=== PATIENT | female | born 1955 | race Caucasian/White ===

== ENCOUNTER 2016-09-28 15:14 | Emergency (ER) | payer OTHER ==
[2016-09-28 15:25] VITALS: BMI 37.5
[2016-09-28 15:30] VITALS: RESP 17; TEMP 98.7
[2016-09-28] MEDS ORDERED: Sodium Chloride 0.9% 500 ML IV STA (15:41)
[2016-09-28 16:23] LABS: ADD MANUAL DIFF? NO
[2016-09-28 16:27] LABS: EOS % 0.7 % (1.5-5.0); GRAN # 3.62 (1.4-6.5); GRAN % 67.4 % (50.0-68.0); HEMATOCRIT 33.3 % (36.0-48.0); LYMPH # 1.5 (1.2-3.4); LYMPH % 27.1 % (22.0-35.0); MEAN CELL VOLUME 88.8 fL (80.0-105.0); MEAN CORPUSCULAR HEMOGLOBIN 29.6 pg (25.0-35.0); MEAN CORPUSCULAR HGB CONC 33.3 g/dl (31.0-37.0); MEAN PLATELET VOLUME 9.8 fl (7.0-11.0); MONO # 0.3 (0.1-0.6); MONO % 4.8 % (1.0-6.0); PLATELET COUNT 251 10^3/uL (120.0-450.0); RED CELL DISTRIBUTION WIDTH 13.6 % (11.5-14.5); WHITE BLOOD COUNT 5.4 10^3/ul (4.5-11.0)
[2016-09-28 16:36] LABS: BLOOD UREA NITROGEN 17 mg/dL (7-21); CALCIUM 9.5 mg/dL (8.4-10.5); CARBON DIOXIDE 24 mmol/L (21-33); CHLORIDE 105 mmol/L (98-107); GFR AFRICAN-AMERICAN > 60; GLUCOSE,RANDOM 83 mg/dL (70-110); POTASSIUM 4.5 mmol/L (3.6-5.0); SODIUM 139 mmol/L (132-148)
--- NOTE | 2016-09-28 16:40 | ED PDOC ---
Arrival/HPI - General Chief Complaint: Abnormal Skin Integrity Time Seen by Provider: 09/28/16 15:22 Historian: Patient, Family - History of Present Illness Narrative History of Present Illness (Text): 09/28/16 16:48 61 yo female with a h/o DM, Anemia, COPD, HTN, HCL, RA, Psych, presents to the ED with daughter c/o rash under her breasts x 1 month. First it was just under the left breast and now it's on the right. She it itches and feels like a slight burning sensation. No pus. She felt warm last night so she says she may have had a fever. No sweats or bodyaches. Denies any lightheadedness, dizziness , chest pain or weakness. She is complaint with her medications. PMD: [facility] Past Medical History - Provider Review Nursing Documentation Reviewed: Yes - Infectious Disease Hx of Infectious Diseases: None - Cardiac Hx Cardiac Disorders: Yes Hx Hypertension: Yes - Pulmonary Hx Respiratory Disorders: No - Neurological Hx Neurological Disorder: No - HEENT Hx HEENT Disorder: No - Renal Hx Renal Disorder: No - Endocrine/Metabolic Hx Endocrine Disorders: Yes Hx Diabetes Mellitus Type 2: Yes - Hematological/Oncological Hx Blood Disorders: No - Integumentary Hx Dermatological Disorder: No - Musculoskeletal/Rheumatological Hx Musculoskeletal Disorders: No - Gastrointestinal Hx Gastrointestinal Disorders: No - Genitourinary/Gynecological Hx Genitourinary Disorders: No - Psychiatric Hx Depression: Yes Hx Substance Use: No - Surgical History Hx Tubal Ligation: Yes - Anesthesia Hx Malignant Hyperthermia: No - Suicidal Assessment Feels Threatened In Home Enviroment: No Family/Social History - Physician Review Nursing Documentation Reviewed: Yes Family/Social History: No Known Family HX Smoking Status: Never Smoked Hx Alcohol Use: No Hx Substance Use: No Hx Substance Use Treatment: No Allergies/Home Meds Allergies/Adverse Reactions: Allergies ethinyl estradiol [From Seasonale contraceptive] Allergy (Verified 09/28/16 15: 25) CONGESTION levonorgestrel [From Seasonale contraceptive] Allergy (Verified 09/28/16 15:25) CONGESTION Home Medications: Home Meds Medication Instructions Recorded Confirmed Sertraline [Zoloft] 100 mg PO DAILY 09/30/13 09/28/16 Review of Systems - Physician Review All systems were reviewed & negative as marked: Yes - Review of Systems Constitutional: Normal Eyes: Normal ENT: Normal Respiratory: Normal Cardiovascular: Normal Gastrointestinal: Normal Genitourinary Female: Normal Musculoskeletal: Normal Skin: Rash, Pruritis Neurological: Normal Endocrine: Normal Hemo/Lymphatic: Normal Psychiatric: Normal Physical Exam Vital Signs Reviewed: Yes Vital Signs Temp Pulse Resp BP Pulse Ox 09/28/16 16:10 115/59 L 09/28/16 15:28 98.7 F 63 17 90/57 L 97 Temperature: Afebrile Blood Pressure: Other (Initial BP was low but subsequent were improved. This initial pressure may have been positional error.) Pulse: Regular Respiratory Rate: Normal Appearance: Positive for: Well-Appearing, Non-Toxic, Comfortable Pain Distress: None Mental Status: Positive for: Alert and Oriented X 3 - Systems Exam Head: Present: Atraumatic, Normocephalic Pupils: Present: PERRL Extroacular Muscles: Present: EOMI Conjunctiva: Present: Normal Mouth: Present: Moist Mucous Membranes Neck: Present: Normal Range of Motion Respiratory/Chest: Present: Clear to Auscultation, Good Air Exchange. No: Respiratory Distress, Accessory Muscle Use Cardiovascular: Present: Regular Rate and Rhythm, Normal S1, S2. No: Murmurs Abdomen: Present: Normal Bowel Sounds. No: Tenderness, Distention, Peritoneal Signs Back: Present: Normal Inspection Upper Extremity: Present: Normal Inspection. No: Cyanosis, Edema Lower Extremity: Present: Normal Inspection. No: Edema Neurological: Present: GCS=15, CN II-XII Intact, Speech Normal Skin: Present: Warm, Dry, Normal Color, Other (Rash that is mild erythematous with mild excoration of skin with white dryness most consistent with fungal infection). No: Rashes, Diaphoretic, Induration, Hot Psychiatric: Present: Alert, Oriented x 3, Normal Insight, Normal Concentration Medical Decision Making ED Course and Treatment: 09/28/16 16:52 61 yo female with fungal infection under breasts. Will consider a possible superficial bacterial infection. -- CBC, BMP Labs reviewed. CBC nl with WBC nl. Afebrile. She appears comfortable. Will discharge her on Keflex for possible superimposed bacterial infection but primarily this is a fungal infection. I explained that if the rash gets red, warm, spreads or any other concern to return to the ED. - Lab Interpretations Lab Results: 09/28/16 16:20 09/28/16 16:20 Lab Results 09/28/16 16:20: Sodium 139, Potassium 4.5, Chloride 105, Carbon Dioxide 24, Anion Gap 15, BUN 17, Creatinine 1.0, Est GFR ( Amer) > 60, Est GFR (Non- Af Amer) 57, Random Glucose 83, Calcium 9.5 09/28/16 16:20: WBC 5.4 D, RBC 3.75, Hgb 11.1 L, Hct 33.3 L, MCV 88.8, MCH 29.6 , MCHC 33.3, RDW 13.6, Plt Count 251, MPV 9.8, Gran % 67.4, Lymph % (Auto) 27.1 , [place] % (Auto) 4.8, Eos % (Auto) 0.7 L, Baso % (Auto) 0.0, Gran # 3.62, Lymph # 1.5, Motley # 0.3, Eos # 0.0, Baso # 0.00 - Medication Orders Current Medication Orders: Discontinued Medications Sodium Chloride (Sodium Chloride 0.9%) 500 mls @ 999 mls/hr IV .Q31M STA Stop: 09/28/16 16:11 Last Admin: 09/28/16 15:45 Dose: 999 mls/hr Disposition/Present on Arrival - Present on Arrival Any Indicators Present on Arrival: No History of DVT/PE: No History of Uncontrolled Diabetes: No Urinary Catheter: No History of Decub. Ulcer: No History Surgical Site Infection Following: None - Disposition Have Diagnosis and Disposition been Completed?: Yes Diagnosis: Fungal rash of torso Disposition: HOME/ ROUTINE Disposition Time: 16:37 Patient Plan: Discharge Patient Problems: Current Active Problems Problem Status Onset Fungal rash of torso Acute Condition: GOOD Discharge Instructions (ExitCare): Antifungals (On the skin) Additional Instructions: Yao, thank you for letting us take care of you today. Your provider was Dr. Lucas. You were treated for Fungal Infection. The emergency medical care you received today was directed at your acute symptoms. If you were prescribed any medication, please fill it and take as directed. It may take several days for your symptoms to resolve. Return to the Emergency Department if your symptoms worsen, do not improve, or if you have any other problems. Please contact your doctor or call one of the physicians/clinics you have been referred to that are listed on the Patient Visit Information form that is included in your discharge packet. Bring any paperwork you were given at discharge with you along with any medications you are taking to your follow up visit. Our treatment cannot replace ongoing medical care by a primary care provider (PCP) outside of the emergency department. Thank you for allowing the [facility] team to be part of your care today. If you had an X-Ray or CT scan: A Radiologist will review the ED reading if any change in treatment is needed we will contact you. If you had a blood, urine, or wound culture: It will take several days for the results, if any change in treatment is needed we will contact you. If you had an STI test: It will take 48 hours for the results. Please call after 1 week if you have not heard back. Prescriptions: Cephalexin [Keflex] 500 mg PO Q6 #27 capsule Clotrimazole 1% Cream [Lotrimin 1%] 1 appl TP BID #1 tube Referrals: [facility] Profile Req, [Non-Staff] - Follow up with primary Forms: [employer] (Venezuelan), WORK NOTE
[2016-09-28 17:00] VITALS: BP 115/57; PULSE 65; O2SAT 98
== END 2016-09-28 17:02 | disposition home or self-care (01) ==
LOC: ED 15:14
DX: B36.9 Superficial mycosis, unspecified (principal); E11.9 Type 2 diabetes mellitus without complications; I10 Essential (primary) hypertension; M06.9 Rheumatoid arthritis, unspecified
CPT/HCPCS: 80048; 85025; 87040; 99284; J7040

== ENCOUNTER 2017-03-19 21:20 | Emergency (ER) | payer MEDICAID, OTHER ==
[2017-03-19 21:30] VITALS: BMI 38.9
[2017-03-19 21:42] VITALS: BP 118/44; PULSE 79; RESP 18; TEMP 98.5; O2SAT 97
[2017-03-19 22:01] LABS: EOS # 0.1 (0.0-0.7); EOS % 0.7 % (1.5-5.0); GRAN # 5.5 (1.4-6.5); HEMATOCRIT 35.5 % (36.0-48.0); LYMPH # 2.6 (1.2-3.4); MEAN CELL VOLUME 89.6 fl (80.0-105.0); MEAN CORPUSCULAR HEMOGLOBIN 29.5 pg (25.0-35.0); MEAN PLATELET VOLUME 10.1 fl (7.0-11.0); MONO # 0.6 (0.1-0.6); MONO % 6.3 % (1.0-6.0); WHITE BLOOD COUNT 8.7 10^3/ul (4.5-11.0)
--- NOTE | 2017-03-19 22:07 | ED PDOC ---
Arrival/HPI <Pham Mello - Last Filed: 03/19/17 23:34> <Brandon Richard - Last Filed: 03/20/17 06:58> - General Chief Complaint: Chest Pain Time Seen by Provider: 03/19/17 21:30 - History of Present Illness Narrative History of Present Illness (Text): 61 y/o woman w/ pmhx of schizophrenia, anxiety, htn, cva w/ no residual deficits ?, recent visits for possible angioedemal reaction presents c/o atraumtic left sided trapezoidal pain w/ some radiation though posterolateral lue , no associated sob/n/v/d/diaphoresis/recent cough nor URI like symptoms. Pt appears to be only in writhing distress only when providers enter the, room, if quietly observed from behind curtains she sleeps peacefully . 03/19/17 22:01 (Pham Mello) Past Medical History - Provider Review Nursing Documentation Reviewed: Yes - Infectious Disease Hx of Infectious Diseases: None - Cardiac Hx Hypertension: Yes - Pulmonary Hx Chronic Obstructive Pulmonary Disease (COPD): Yes - Neurological Hx Migraine: Yes Hx Transient Ischemic Attacks (TIA): Yes - HEENT Hx HEENT Disorder: No - Renal Hx Renal Disorder: No - Endocrine/Metabolic Hx Endocrine Disorders: Yes Hx Diabetes Mellitus Type 2: Yes - Hematological/Oncological Hx Anemia: Yes - Integumentary Hx Dermatological Disorder: No - Musculoskeletal/Rheumatological Hx Arthritis: Yes Hx Rheumatoid Arthritis: Yes - Gastrointestinal Hx Gastrointestinal Disorders: No - Genitourinary/Gynecological Hx Genitourinary Disorders: No - Psychiatric Hx Bipolar Disorder: Yes Hx Depression: Yes Hx Schizophrenia: Yes (since 2003) Hx Substance Use: No - Surgical History Hx Coronary Artery Bypass Graft: No - Anesthesia Hx Anesthesia: Yes Hx Anesthesia Reactions: No Hx Malignant Hyperthermia: No - Suicidal Assessment Feels Threatened In Home Enviroment: No <Pham Mello - Last Filed: 03/19/17 23:34> Family/Social History - Physician Review Nursing Documentation Reviewed: Yes Family/Social History: No Known Family HX Smoking Status: Heavy Smoker > 10 Cigarettes Daily Hx Alcohol Use: Yes Hx Substance Use: No Hx Substance Use Treatment: No <Pham Mello - Last Filed: 03/19/17 23:34> Allergies/Home Meds <Pham Mello - Last Filed: 03/19/17 23:34> <Brandon Richard - Last Filed: 03/20/17 06:58> Allergies/Adverse Reactions: Allergies ethinyl estradiol [From Seasonale contraceptive] Allergy (Verified 03/13/17 10: 19) CONGESTION levonorgestrel [From Seasonale contraceptive] Allergy (Verified 03/13/17 10:19) CONGESTION Home Medications: Home Meds Medication Instructions Recorded Confirmed Aspirin 325 mg PO BID 11/11/16 03/19/17 Atorvastatin [Lipitor] 40 mg PO HS 11/11/16 03/19/17 Clonazepam [Klonopin] 0.5 mg PO BID 11/11/16 03/19/17 DiphenhydrAMINE [Benadryl] 25 mg PO BID 11/11/16 03/19/17 Gabapentin [Neurontin] 300 mg PO BID 11/11/16 03/19/17 Lisinopril [Zestril] 10 mg PO DAILY 11/11/16 03/19/17 MetFORMIN [glucoPHAGE] 1,000 mg PO BID 11/11/16 03/19/17 OXcarbazepine [Trileptal] 150 mg PO BID 11/11/16 03/19/17 Benztropine [Cogentin] 1 mg PO DAILY 03/19/17 03/19/17 Sertraline [Zoloft] 100 mg PO BID 03/19/17 03/19/17 Review of Systems - Physician Review All systems were reviewed & negative as marked: Yes - Review of Systems Constitutional: Normal Eyes: Normal ENT: Normal Respiratory: Normal Cardiovascular: Normal Gastrointestinal: Normal Genitourinary Female: Normal Musculoskeletal: Myalgias Skin: Normal Neurological: Normal Endocrine: Normal Hemo/Lymphatic: Normal Psychiatric: Normal <Pham Mello - Last Filed: 03/19/17 23:34> Physical Exam Vital Signs Reviewed: Yes Temperature: Afebrile Blood Pressure: Normal Pulse: Regular Respiratory Rate: Normal Appearance: Positive for: Well-Appearing, Non-Toxic, Comfortable Pain Distress: None Mental Status: Positive for: Alert and Oriented X 3 - Systems Exam Head: Present: Atraumatic, Normocephalic Pupils: Present: PERRL Extroacular Muscles: Present: EOMI Conjunctiva: Present: Normal Mouth: Present: Moist Mucous Membranes Neck: Present: Normal Range of Motion Respiratory/Chest: Present: Clear to Auscultation, Good Air Exchange. No: Respiratory Distress, Accessory Muscle Use Cardiovascular: Present: Regular Rate and Rhythm, Normal S1, S2. No: Murmurs Abdomen: Present: Normal Bowel Sounds. No: Tenderness, Distention, Peritoneal Signs Back: Present: Normal Inspection Upper Extremity: Present: Normal Inspection, Other (left trapezoid tender to palpation at ist midclavicular belly point, shoulder rotation also eleicits said pain of patient. ). No: Cyanosis, Edema Lower Extremity: Present: Normal Inspection, Other. No: Edema Neurological: Present: GCS=15, CN II-XII Intact, Speech Normal, Motor Func Grossly Intact, Normal Sensory Function, Normal Cerebellar Funct, Norm Deep Tendon Reflexes, Gait Normal, Memory Normal, Normal 2Pt Descrimination Skin: Present: Warm, Dry, Normal Color. No: Rashes Psychiatric: Present: Alert, Oriented x 3, Normal Concentration, Other (OFTEN TANGENTIAL IN RESPONSE TO QUERY , FERVENTLY DENYING ANY SI/HI/AH/VH. Slightly strange affect, ) <Pham Mello - Last Filed: 03/19/17 23:34> Vital Signs Temp Pulse Resp BP Pulse Ox 03/19/17 21:21 98.5 F 79 18 118/44 L 97 Medical Decision Making <Pham Mello - Last Filed: 03/19/17 23:34> <Brandon Richard - Last Filed: 03/20/17 06:58> ED Course and Treatment: Geneva Duggan daughter [phone] states that her mother has been seemingly more exasperated regarding her health, and has been more anxious over her baseline in the past several months, although denying any si/hi/ah/vh/truly bizarre disruptive behavior /perturbtion of her adL's and she thinks she is compliant with her rx and is largely at her baseline. She normally resides with her daughter but has been caring for her ex- at his house and her daughter's father whom is demented and helps him without perturbation with all his adL's. 03/19/17 22:40 03/19/17 23:57 nsr @ [address]-t- segments nor arrythmogenic intervals 61 y/o woman w/ pmhx of schizoaffective disorder/depression presents c/o left sided trapezoidal pain , w/ no exertional exacerbation ameliorated by toradol/ flexeril/ativan Pt. has follow up in [facility] 6-7 days /week, and will f/u regarding her slightly increased anxiety. Daughter desires to be called prior to ambulance arrives so that she can greet her mother at home. ( Pham Mello) 03/20/17 00:41 received in signout from dr. Simmons, urine neg for any significatn UTI will d/ c. (Brandon Richard) - Lab Interpretations Lab Results: 03/19/17 21:30 03/19/17 21:30 Lab Results 03/19/17 23:54: Urine Opiates Screen Negative, Urine Methadone Screen Negative, Ur Barbiturates Screen Negative, Ur Phencyclidine Scrn Negative, Ur Amphetamines Screen Negative, U Benzodiazepines Scrn Positive, U Oth Cocaine Metabols Negative, U Cannabinoids Screen Negative 03/19/17 23:54: Urine Color Yellow, Urine Appearance Sl cloudy, Urine pH 6.5, Ur Specific [place] 1.020, Urine Protein Negative, Urine Glucose (UA) Negative, Urine Ketones Negative, Urine Blood Negative, Urine Nitrate Negative, Urine Bilirubin Negative, Urine Urobilinogen 0.2, Ur Leukocyte Esterase Moderate H, Urine RBC 0 - 2, Urine WBC 2 - 5, Ur Epithelial Cells 1 - 3 03/19/17 21:30: Sodium 138, Potassium 3.7, Chloride 104, Carbon Dioxide 26, Anion Gap 13, BUN 20, Creatinine 0.9, Est GFR ( Amer) > 60, Est GFR (Non- Af Amer) > 60, Random Glucose 146 H, Calcium 9.6, Magnesium 1.9, Total Bilirubin 0.4, AST 18, ALT 25, Alkaline Phosphatase 82, Lactate Dehydrogenase 369, Total Creatine Kinase 52, Troponin I < 0.01, NT-Pro-B Natriuret Pep 111, Total Protein 7.7, Albumin 4.3, Globulin 3.5, Albumin/Globulin Ratio 1.2, Lipase 116 03/19/17 21:30: PT 10.4, INR 0.96, APTT 27.8 03/19/17 21:30: WBC 8.7 D, RBC 3.96, Hgb 11.7 L, Hct 35.5 L, MCV 89.6, MCH 29.5 , MCHC 33.0, RDW 14.0, Plt Count 283, MPV 10.1, Gran % 63.0, Lymph % (Auto) 30.0 , [place] % (Auto) 6.3 H, Eos % (Auto) 0.7 L, Baso % (Auto) 0.0, Gran # 5.50, Lymph # 2.6, [place] # 0.6, Eos # 0.1, Baso # 0.00 - RAD Interpretation Radiology Orders: 03/19/17 21:45 CHEST TWO VIEWS (PA/LAT) [RAD] Stat - Medication Orders Current Medication Orders: Discontinued Medications Cyclobenzaprine HCl (Flexeril) 10 mg PO STAT STA Stop: 03/19/17 22:00 Last Admin: 03/19/17 22:20 Dose: 10 mg Ketorolac Tromethamine (Toradol) 15 mg IVP STAT STA Stop: 03/19/17 22:01 Last Admin: 03/19/17 22:20 Dose: 15 mg MAR Pain Assessment Document 03/19/17 22:20 AD (Rec: 03/19/17 22:20 AD [id number]) Pain Reassessment Is this a pain reassessment? No Presence of Pain Presence of Pain Yes Pain Scale Used Pain Scale Used Numeric Description Intensity of Pain at present 10 Pain Behavior Moaning Facial Grimacing IVP Administration Document 03/19/17 22:20 AD (Rec: 03/19/17 22:20 AD [id number]) Charges for Administration # of IVP Administrations 1 Lorazepam (Ativan) 0.5 mg PO ONCE ONE PRN Reason: Protocol Stop: 03/19/17 22:15 Last Admin: 03/19/17 22:24 Dose: 0.5 mg Disposition/Present on Arrival - Present on Arrival History of DVT/PE: No History of Uncontrolled Diabetes: No Urinary Catheter: No History of Decub. Ulcer: No History Surgical Site Infection Following: None <Funmilayo,I'Kyori - Last Filed: 03/19/17 23:34> - Present on Arrival Any Indicators Present on Arrival: No History of DVT/PE: No History of Uncontrolled Diabetes: No Urinary Catheter: No History of Decub. Ulcer: No - Disposition Have Diagnosis and Disposition been Completed?: Yes Disposition Time: 03:00 Patient Plan: Discharge <Brandon Richard - Last Filed: 03/20/17 06:58> - Disposition Diagnosis: Trapezoid ligament sprain Disposition: HOME/ ROUTINE Condition: IMPROVED Discharge Instructions (ExitCare): Musculoskeletal Pain (ED) Additional Instructions: take tylenol or motrin over the counter for pain. Prescriptions: Cyclobenzaprine [Cyclobenzaprine HCl] 10 mg PO TID PRN #15 tab PRN Reason: Muscle Spasm Referrals: Mya Bueno MD [Primary Care Provider] - Follow up with primary Forms: [employer] ([place]alander)
[2017-03-19 22:08] LABS: ALB/GLOB RATIO 1.2 (1.1-1.8); ALKALINE PHOSPHATASE 82 U/L (38-126); ALT/SGPT 25 U/L (7-56); AST/SGOT 18 U/L (14-36); BILIRUBIN,TOTAL 0.4 mg/dL (0.2-1.3); BLOOD UREA NITROGEN 20 mg/dL (7-21); CALCIUM 9.6 mg/dL (8.4-10.5); CARBON DIOXIDE 26 mmol/L (21-33); CHLORIDE 104 mmol/L (98-107); GFR AFRICAN-AMERICAN > 60; GLUCOSE,RANDOM 146 mg/dL (70-110); LIPASE 116 U/L (23-300); MAGNESIUM 1.9 mg/dL (1.7-2.2); POTASSIUM 3.7 mmol/L (3.6-5.0); SODIUM 138 mmol/L (132-148); TOTAL PROTEIN 7.7 g/dL (5.8-8.3)
[2017-03-19 22:10] LABS: INR 0.96 (0.93-1.08); PARTIAL THROMBOPLASTIN TIME 27.8 Seconds (25.1-36.5)
[2017-03-19 22:25] LABS: TROPONIN I < 0.01 ng/mL
[2017-03-20 00:25] LABS: PH,URINE 6.5 (4.7-8.0); URINE BILIRUBIN NEGATIVE (NEGATIVE); URINE BLOOD NEGATIVE (NEGATIVE); URINE GLUCOSE (UA) NEGATIVE (NEGATIVE); URINE KETONE NEGATIVE (NEGATIVE); URINE LEUKOCYTE ESTERASE MODERATE Leu/uL (NEGATIVE); URINE PROTEIN NEGATIVE mg/dL (<30 mg/dL); URINE UROBILINOGEN 0.2 E.U./dL (<1 E.U./dL)
[2017-03-20 00:29] LABS: URINE APPEARANCE SL CLOUDY (CLEAR); URINE COLOR YELLOW (YELLOW)
[2017-03-20 00:56] LABS: URINE RBC 0 - 2 /hpf (0-2)
--- NOTE | 2017-03-20 08:57 | RAD ---
HISTORY: routine med exam COMPARISON: 07/04/2014. TECHNIQUE: Chest PA and lateral FINDINGS: LUNGS: No active pulmonary disease. PLEURA: No significant pleural effusion identified. No pneumothorax apparent. CARDIOVASCULAR: Normal. OSSEOUS STRUCTURES: No significant abnormalities. VISUALIZED UPPER ABDOMEN: Normal. OTHER FINDINGS: None. IMPRESSION: No active disease. No significant interval change compared to the prior examination(s).
--- NOTE | 2017-03-20 23:24 | CARD ---
APPROVED REPORT EKG Measurement Heart [id number] <Conclusion> Normal sinus rhythm Normal ECG
== END 2017-03-20 01:06 | disposition home or self-care (01) ==
LOC: ED 21:20
DX: S43.82XA Sprain of other specified parts of left shoulder girdle, initial encounter (principal); X58.XXXA Exposure to other specified factors, initial encounter; Y92.9 Unspecified place or not applicable; I10 Essential (primary) hypertension; E11.9 Type 2 diabetes mellitus without complications; F20.9 Schizophrenia, unspecified; Z86.73 Personal history of transient ischemic attack (TIA), and cerebral infarction without residual deficits; F17.210 Nicotine dependence, cigarettes, uncomplicated
CPT/HCPCS: 71020; 80053; 80324; 80345; 80346; 80349; 80353; 80358; 80361; 81001; 82550; 83615; 83690; 83735; 83880; 83992; 84484; 85025; 85610; 85730; 87086; 93005; 96374; 99284; J1885

== ENCOUNTER 2018-03-22 07:14 | Day surgery (SDC) | payer MEDICAID, OTHER ==
[2018-03-22 07:17] VITALS: BMI 41.1
--- NOTE | 2018-03-22 07:28 | ED PDOC ---
Arrival/HPI - General Time Seen by Provider: 03/22/18 07:26 Historian: Patient - History of Present Illness Narrative History of Present Illness (Text): 03/22/18 07:47 A 62 year old female, whose past medical history includes hypertension, diabetes, COPD, anemia, bipolar disorder, and schizophrenia, presents to the emergency department complaining of chest tightness since last night. Patient reports she had a nuclear stress test performed on 03/18/18 and was told if she still continues to have chest pain to arrive back to the hospital. Describes chest tightness as pressure-like, radiating to the left arm, associated with some shortness of breath which she states she normally feels short of breath from COPD, however this is more than usual. Patient denies any nausea, vomiting, diaphoresis, or any other complaints at this time. No PMD Past Medical History - Provider Review Nursing Documentation Reviewed: Yes - Infectious Disease Hx of Infectious Diseases: None - Cardiac Hx Hypertension: Yes - Pulmonary Hx Chronic Obstructive Pulmonary Disease (COPD): Yes - Neurological Hx Migraine: Yes Hx Transient Ischemic Attacks (TIA): Yes - HEENT Hx HEENT Disorder: No - Renal Hx Renal Disorder: No - Endocrine/Metabolic Hx Endocrine Disorders: Yes Hx Diabetes Mellitus Type 2: Yes - Hematological/Oncological Hx AIDS: No - Integumentary Hx Dermatological Disorder: No - Musculoskeletal/Rheumatological Hx Arthritis: Yes - Gastrointestinal Hx Gastrointestinal Disorders: No - Genitourinary/Gynecological Hx Genitourinary Disorders: No - Psychiatric Hx Bipolar Disorder: Yes Hx Depression: Yes Hx Schizophrenia: Yes (since 2003) Hx Substance Use: No - Surgical History Hx Coronary Artery Bypass Graft: No - Anesthesia Hx Anesthesia: Yes Hx Anesthesia Reactions: No Hx Malignant Hyperthermia: No - Suicidal Assessment Feels Threatened In Home Enviroment: No Family/Social History - Physician Review Nursing Documentation Reviewed: Yes Family/Social History: No Known Family HX Smoking Status: Heavy Smoker > 10 Cigarettes Daily Hx Alcohol Use: No Hx Substance Use: No Hx Substance Use Treatment: No Allergies/Home Meds Allergies/Adverse Reactions: Allergies banana Allergy (Verified 03/22/18 07:18) ANAPHYLAXIS 03/22/18 - Patient denies documented allergy. Home Medications: Home Meds Medication Instructions Recorded Confirmed RX: Aspirin 325 mg PO BID 11/11/16 03/22/18 RX: Atorvastatin [Lipitor] 40 mg PO DAILY 11/11/16 03/22/18 RX: Clonazepam [Klonopin] 0.5 mg PO Q12 11/11/16 03/22/18 RX: Gabapentin [Neurontin] 300 mg PO Q8 11/11/16 03/22/18 RX: Lisinopril [Zestril] 10 mg PO DAILY 11/11/16 03/22/18 RX: MetFORMIN [glucoPHAGE] 1,000 mg PO BID 11/11/16 03/22/18 RX: Sertraline [Zoloft] 200 mg PO QAM 03/19/17 03/22/18 Quetiapine Fumarate [Seroquel] 800 mg PO HS 08/21/17 03/22/18 RX: traZODone [Desyrel] 100 mg PO HS 08/21/17 03/22/18 Review of Systems - Physician Review All systems were reviewed & negative as marked: Yes - Review of Systems Respiratory: SOB (some) Cardiovascular: Chest Pain (chest tightness, described as pressure-like radiating to the left arm.) Gastrointestinal: absent: Nausea, Vomiting Endocrine: absent: Diaphoresis Physical Exam Vital Signs Reviewed: Yes Temperature: Afebrile Blood Pressure: Normal Pulse: Regular Respiratory Rate: Normal Appearance: Positive for: Well-Appearing, Non-Toxic, Comfortable Pain Distress: None Mental Status: Positive for: Alert and Oriented X 3 - Systems Exam Head: Present: Atraumatic, Normocephalic Pupils: Present: PERRL Extroacular Muscles: Present: EOMI Conjunctiva: Present: Normal Mouth: Present: Moist Mucous Membranes Neck: Present: Normal Range of Motion Respiratory/Chest: Present: Clear to Auscultation, Good Air Exchange. No: Respiratory Distress, Accessory Muscle Use Cardiovascular: Present: Regular Rate and Rhythm, Normal S1, S2. No: Murmurs Abdomen: No: Tenderness, Distention, Peritoneal Signs Back: Present: Normal Inspection Upper Extremity: Present: Normal Inspection. No: Cyanosis, Edema Lower Extremity: Present: Normal Inspection. No: Edema Neurological: Present: GCS=15, CN II-XII Intact, Speech Normal Skin: Present: Warm, Dry, Normal Color. No: Rashes Psychiatric: Present: Alert, Oriented x 3, Normal Insight, Normal Concentration Medical Decision Making ED Course and Treatment: 03/22/18 07:50 Impression: 62 year old female with chest tightness radiating to left arm, with some associated shortness of breath. Physical exam is unremarkable. Differential Diagnosis included but are not limited to: Chest Pain rule out NH. Plan: -- EKG -- Labs -- Urinalysis -- Nasal Cannula -- Reassess and disposition Progress Notes: 03/22/18 07:54 Catheter lab called for patient and patient is being prepared to be taken to the laborer cook house. - Lab Interpretations I have reviewed the lab results: Yes - Scribe Statement The provider has reviewed the documentation as recorded by the Jorje Hussein Provider Scribe Attestation: All medical record entries made by the Jorje were at my direction and personally dictated by me. I have reviewed the chart and agree that the record accurately reflects my personal performance of the history, physical exam, medical decision making, and the department course for this patient. I have also personally directed, reviewed, and agree with the discharge instructions and disposition. Disposition/Present on Arrival - Present on Arrival Any Indicators Present on Arrival: No History of DVT/PE: No History of Uncontrolled Diabetes: Yes Urinary Catheter: No History Surgical Site Infection Following: None - Disposition Have Diagnosis and Disposition been Completed?: Yes Diagnosis: Chest pain, NSTEMI (non-ST elevated myocardial infarction) Disposition: HOSPITALIZED Disposition Time: 07:30 Condition: FAIR
[2018-03-22 07:59] LABS: EOS # 0.1 (0.0-0.7); EOS % 1.2 % (1.5-5.0); GRAN # 3.54 (1.4-6.5); GRAN % 60.4 % (50.0-68.0); HEMOGLOBIN 10.2 g/dL (12.0-16.0); MEAN CELL VOLUME 87.9 fl (80.0-105.0); MEAN CORPUSCULAR HGB CONC 31.9 g/dl (31.0-37.0); MEAN PLATELET VOLUME 9.7 fl (7.0-11.0); MONO # 0.3 (0.1-0.6); MONO % 4.4 % (1.0-6.0); RBC 3.64 10^6/uL (3.5-6.1); RED CELL DISTRIBUTION WIDTH 13.6 % (11.5-14.5); WHITE BLOOD COUNT 5.9 10^3/uL (4.5-11.0)
[2018-03-22 08:16] LABS: ALB/GLOB RATIO 1.2 (1.1-1.8); ALBUMIN 4.1 g/dL (3.0-4.8); ALT/SGPT 18 U/L (7-56); AST/SGOT 27 U/L (14-36); BLOOD UREA NITROGEN 12 mg/dL (7-21); CALCIUM 10.1 mg/dL (8.4-10.5); GFR NON-AFRICAN AMERICAN > 60
[2018-03-22 08:28] LABS: TROPONIN I < 0.01 ng/mL
[2018-03-22] MEDS ORDERED: Lidocaine 2% Inj (20ml) ONE (08:53)
[2018-03-22] MEDS ORDERED: Iodixanol 320 MG/ML 200 ML BOTTLE IV ONE (08:54)
[2018-03-22] MEDS ORDERED: Iodixanol 320 MG/ML 100 ML BOTTLE IV ONE (08:54)
[2018-03-22] MEDS ORDERED: Midazolam 2 MG/2 ML VIAL ONE ×2 (09:03→09:08)
[2018-03-22] MEDS ORDERED: Sodium Chloride 0.9% 1,000 ML IV SCH (09:45)
--- NOTE | 2018-03-22 10:04 | CARDCATH ---
PROCEDURE DATE: 03/22/2018 HISTORY OF PRESENT ILLNESS: The patient is a 62-year-old woman who presents to the emergency room with progressive chest pain which has been on since last night. Her symptoms have increased to the point where she is having angina at rest. She suffers from diabetes mellitus, hypertension, hypercholesterolemia, COPD and has a bipolar disorder. Because of her progressive symptoms and unstable angina, the patient was brought up to the cardiac cath technologist under emergency conditions. PROCEDURE: Left heart catheterization with coronary arteriography and left ventriculogram. The right femoral artery was cannulated with 6-Italian sheath. There were no complications. I performed moderate sedation which included the presence of an independent trained observer that assisted in monitoring the patient's consciousness and physiologic status. After administration of Versed and fentanyl, my intra service time was 15 minutes. The findings on catheterization revealed a left ventricle that contracted normally. Estimated ejection fraction is 60-65%. Her coronary anatomy revealed a right dominant circulation. The RCA revealed intimal irregularities throughout its course. At the takeoff of the posterior lateral branch, there was a 50-60% stenoses in its proximal portion. The left main artery is unremarkable. The LAD and diagonal vessels revealed intimal irregularities without critical lesions. The circumflex artery and obtuse marginal branches revealed intimal irregularities without significant stenosis. Manual compression was used to close the femoral artery site. The patient tolerated the procedure well. In summary, the procedure revealed normal LV function. Diffuse atherosclerosis in the coronary tree with a 50% stenosis at the takeoff of a posterior lateral branch off the RCA. There are no critical coronary lesions noted. Given these findings, the patient's treatment will be continued medical therapy. A cardiac risk reduction program would be appropriate. Bon Mueller MD
--- NOTE | 2018-03-22 14:05 | CARD ---
APPROVED REPORT Date of service: 03/22/2018 EKG Measurement Heart [id number] ID [id number] <Conclusion> Normal sinus rhythm Normal ECG
[2018-03-23 00:12] VITALS: BP 143/68; PULSE 69; RESP 17; TEMP 98.8
[2018-03-23 01:07] VITALS: O2SAT 98
== END 2018-03-22 20:27 | disposition home or self-care (01) ==
LOC: ED 07:14 → CATH 08:03 → 2RSO 10:19 → CATH 20:27
PROVIDERS: ATTEND Internal Medicine Cardiovascular Disease
DX: I25.110 Atherosclerotic heart disease of native coronary artery with unstable angina pectoris (principal); E11.9 Type 2 diabetes mellitus without complications; E78.00 Pure hypercholesterolemia, unspecified; J44.9 Chronic obstructive pulmonary disease, unspecified; I10 Essential (primary) hypertension; F31.9 Bipolar disorder, unspecified; F17.210 Nicotine dependence, cigarettes, uncomplicated; D64.9 Anemia, unspecified; F20.9 Schizophrenia, unspecified

== ENCOUNTER 2018-08-19 17:30 | Observation (INO) | payer OTHER ==
[2018-08-19 17:35] VITALS: BMI 43.4
--- NOTE | 2018-08-19 18:05 | ED PDOC ---
Arrival/HPI - General Chief Complaint: Dizziness/Lightheaded Historian: Patient - History of Present Illness Narrative History of Present Illness (Text): 08/19/18 18:03 63 year old female, with a past medical history of hypertension, diabetes, COPD, anemia, bipolar disorder, and schizophrenia presents to the emergency department complaining of dizziness and tiredness for several months, but which has worsened today. Patient endorses tinging "all over her body", and chest discomfort. States she "passed out" earlier today, cannot describe how this occurred or when it occurred. Denies injury. Denies new medication. Reports chronic ringing in her ears for several weeks. Denies visual symptoms or facial drooping. Time/Duration: > month Symptom Onset: Sudden Activities at Onset: Light Context: Home Past Medical History - Provider Review Nursing Documentation Reviewed: Yes - Infectious Disease Hx of Infectious Diseases: None - Cardiac Hx Hypertension: Yes - Pulmonary Hx Chronic Obstructive Pulmonary Disease (COPD): Yes Other/Comment: Heavy smoker - Neurological Hx Migraine: Yes Hx Transient Ischemic Attacks (TIA): Yes - HEENT Hx HEENT Disorder: No - Renal Hx Renal Disorder: No - Endocrine/Metabolic Hx Endocrine Disorders: Yes Hx Diabetes Mellitus Type 2: Yes - Hematological/Oncological Hx Anemia: Yes - Integumentary Hx Dermatological Disorder: No - Musculoskeletal/Rheumatological Hx Arthritis: Yes Hx Rheumatoid Arthritis: Yes - Gastrointestinal Hx Gastrointestinal Disorders: No - Genitourinary/Gynecological Hx Genitourinary Disorders: No - Psychiatric Hx Bipolar Disorder: Yes Hx Depression: Yes Hx Schizophrenia: Yes (since 2003) Hx Substance Use: No - Surgical History Hx Coronary Artery Bypass Graft: No - Anesthesia Hx Anesthesia: Yes Hx Anesthesia Reactions: No Hx Malignant Hyperthermia: No - Suicidal Assessment Feels Threatened In Home Enviroment: No Family/Social History - Physician Review Nursing Documentation Reviewed: Yes Family/Social History: Unknown Family HX Smoking Status: Heavy Smoker > 10 Cigarettes Daily Hx Alcohol Use: No Hx Substance Use: No Hx Substance Use Treatment: No Allergies/Home Meds Allergies/Adverse Reactions: Allergies banana Allergy (Verified 08/19/18 17:35) ANAPHYLAXIS 03/22/18 - Patient denies documented allergy. Home Medications: Home Meds Medication Instructions Recorded Confirmed Atorvastatin [Lipitor] 40 mg PO DAILY 11/11/16 08/19/18 Clonazepam [Klonopin] 1 mg PO Q12 11/11/16 08/19/18 Gabapentin [Neurontin] 300 mg PO DAILY 11/11/16 08/19/18 Lisinopril [Zestril] 10 mg PO DAILY 11/11/16 08/19/18 MetFORMIN [glucoPHAGE] 1,000 mg PO BID 11/11/16 08/19/18 Sertraline [Zoloft] 100 mg PO QAM 03/19/17 08/19/18 Quetiapine Fumarate [Seroquel] 400 mg PO HS 08/21/17 08/19/18 ARIPiprazole [Abilify] 15 mg PO DAILY 08/19/18 08/19/18 Aspirin [Adult Low Dose Aspirin EC] 81 mg PO DAILY 08/19/18 08/19/18 DiphenhydrAMINE [Benadryl] 50 mg PO HS 08/19/18 08/19/18 Gabapentin [Neurontin] 600 mg PO HS 08/19/18 08/19/18 Melatonin 10 mg PO HS 08/19/18 08/19/18 Metoprolol Tartrate [Lopressor] 25 mg PO BID 08/19/18 08/19/18 Multivitamin/Iron/Folic Acid 1 cap PO DAILY 08/19/18 08/19/18 [Centrum Adults Tablet] Review of Systems - Review of Systems Constitutional: Fatigue. absent: Fevers Eyes: absent: Vision Changes, Eye Pain ENT: Hearing Changes, Sinus Congestion. absent: Sore Throat, Rhinorrhea Respiratory: Cough. absent: Sputum Cardiovascular: Chest Pain, TANG, Syncope. absent: Palpitations, Edema, Calf Pain Gastrointestinal: Appetite Changes. absent: Abdominal Pain Genitourinary Female: absent: Dysuria, Frequency Musculoskeletal: absent: Back Pain, Neck Pain Skin: absent: Rash Neurological: Dizziness. absent: Headache, Focal Weakness Endocrine: absent: Polydipsia Hemo/Lymphatic: absent: Easy Bleeding Psychiatric: absent: Suicidal Ideation Physical Exam Vital Signs Reviewed: Yes Vital Signs Temp Pulse Resp BP Pulse Ox 08/19/18 17:46 98.2 F 66 18 160/72 H 99 Temperature: Afebrile Appearance: Positive for: Non-Toxic Mental Status: Positive for: Alert and Oriented X 3 - Systems Exam Head: Present: Atraumatic Pupils: Present: PERRL Extroacular Muscles: Present: EOMI Ears: Present: Other (right tm unable to be visualized, ? foreign body) Mouth: Present: Moist Mucous Membranes Pharnyx: No: ERYTHEMA Nose (Internal): Present: Normal Inspection Neck: Present: Normal Range of Motion. No: Meningeal Signs Respiratory/Chest: Present: Clear to Auscultation. No: Respiratory Distress Cardiovascular: Present: Regular Rate and Rhythm, Murmurs Abdomen: No: Tenderness Rectal: No: Gross Blood Breast/Axillary: No: Erythema Back: No: CVA Tenderness Upper Extremity: No: Edema Lower Extremity: No: Edema, CALF TENDERNESS Neurological: Present: Motor Func Grossly Intact, Normal Sensory Function Skin: Present: Warm Psychiatric: Present: Alert, Oriented x 3. No: Normal Concentration, Normal Affect, Suicidal Ideation Medical Decision Making ED Course and Treatment: 08/19/18 18:01 Impression: 63 year old female presents to the emergency department complaining of dizziness and tiredness. Plan: -- EKG -- CT head -- Labs -- Chest X-ray -- Urinalysis -- Influenza AB -- Reassess and disposition Prior Visits: Notes and results from previous visits were reviewed. Progress Notes: Patient currently neuro intact. No focal deficits. EKG unremarkable. Initial card isos unremarkable. Will admit to telemetry for syncope, consult ENT for possible foreign body in right ear. No facial edema or swelling noted. No focal neuro deficits noted. 08/19/18 20:19 - RAD Interpretation Narrative RAD Interpretations (Text): 08/19/18 19:49 CT head reviewed by radiologist, shows: No acute intracranial abnormality. Dependency Director: Radiologist - EKG Interpretation EKG Interpretation (Text): 08/19/18 20:17 EKG at 1739 normal sinus rhythm with no acute st elevations Interpreted by ED Physician: Yes Type: 12 lead EKG - Scribe Statement The provider has reviewed the documentation as [facility] by [facility] Provider Scribe Attestation: All medical record entries made by the Davidibnam were at my direction and personally dictated by me. I have reviewed the chart and agree that the record accurately reflects my personal performance of the history, physical exam, medical decision making, and the department course for this patient. I have also personally directed, reviewed, and agree with the discharge instructions and disposition. Disposition/Present on Arrival - Present on Arrival Any Indicators Present on Arrival: Yes History of DVT/PE: No History of Uncontrolled Diabetes: Yes Urinary Catheter: No History of Decub. Ulcer: No History Surgical Site Infection Following: None - Disposition Have Diagnosis and Disposition been Completed?: Yes Diagnosis: Syncope, Chest pain Disposition: HOSPITALIZED Disposition Time: 20:18 Patient Plan: Admission, Observation Condition: FAIR Discharge Instructions (ExitCare): Syncope (ED), Chest Pain (ED) Forms: ehealthtracker (Montenegrin)
[2018-08-19 18:54] LABS: EOS % 0.1 % (1.5-5.0); HEMOGLOBIN 10.4 g/dL (12.0-16.0); LYMPH # 1.7 (1.2-3.4); LYMPH % 22.9 % (22.0-35.0); MEAN CELL VOLUME 89.7 fl (80.0-105.0); MEAN CORPUSCULAR HEMOGLOBIN 27.6 pg (25.0-35.0); MEAN CORPUSCULAR HGB CONC 30.8 g/dl (31.0-37.0); MEAN PLATELET VOLUME 10.5 fl (7.0-11.0); MONO # 0.5 (0.1-0.6); MONO % 6.9 % (1.0-6.0); RBC 3.77 10^6/uL (3.5-6.1); RED CELL DISTRIBUTION WIDTH 14.2 % (11.5-14.5); WHITE BLOOD COUNT 7.2 10^3/uL (4.5-11.0)
[2018-08-19 18:58] LABS: PARTIAL THROMBOPLASTIN TIME 32.9 Seconds (26.9-38.3); PROTHROMBIN TIME 11.1 SECONDS (9.4-12.5)
[2018-08-19 19:00] LABS: ALB/GLOB RATIO 1.2 (1.1-1.8); ALBUMIN 4.1 g/dL (3.0-4.8); ALT/SGPT 14 U/L (7-56); AST/SGOT 25 U/L (14-36); BLOOD UREA NITROGEN 14 mg/dL (7-21); CALCIUM 9.4 mg/dL (8.4-10.5); GFR NON-AFRICAN AMERICAN > 60
[2018-08-19 19:11] LABS: B-TYPE NATRIURETIC PEPTIDE 206 pg/mL (0-450); TROPONIN I < 0.01 ng/mL
--- NOTE | 2018-08-19 21:18 | CP.PCM.HP ---
<Enid Lewis - Last Filed: 08/19/18 23:28> History of Present Illness - History of Present Illness History of Present Illness: PGY1 Medicine History and Physical Exam Note for Dr. Ladd Patient is a 63-year-old F with PMH significant for COPD, HTN, TIA, diabetes, anemia, GERD, HLD, bipolar disorder, and schizophrenia presents who presents to the ED with a cc of dizziness and fatigue for several months. Per Patient, it worsened today, and this compelled her to come to the ED. Patient endorses tingling "all over her body", and chest pain. Per Patient, the chest pain is localized to sternum is 8/10 in severity radiating down to her left hand, and she describes it as "pressure-like." The Patient says the pain started unprovoked and lasted for a few seconds. Patient denies any loss of consciousness. Patient denies "blacking out." Patient denies any new and/or changes to her medications. Of note, Patient admits chronic ringing in her ears for several weeks. Patient otherwise denies headache, fever, chills, nausea, vomiting, diarrhea, dysuria, abdominal pain, constipation, and/or weakness. Of note, Patient states she took 3 baby aspirin at home prior to calling EMS. PMD: [facility] Dr. Bowden (last clinic visit 06/24/17) Mental Health: Mauro Jenna Derrick PMH: NIDDM, HLD, HTN, schizoaffective disorder (bipolar type), and GERD PSH: right ankle ORIF, tubal ligation Social Hx: lives with daughter. 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, current smoker ([id number]) denies alcohol and/or recreational drugs Family Hx: Father alive, [id number], prostate cancer and HTN; mother medical history unknown, children healthy Meds: Per MAR Allergies: NKDA Present on Admission - Present on Admission Any Indicators Present on Admission: No History of DVT/PE: No History of Uncontrolled Diabetes: No Urinary Catheter: No Decubitus Ulcer Present: No Review of Systems - Review of Systems All systems: reviewed and no additional remarkable complaints except (as per HPI) Past Patient History - Infectious Disease Hx of Infectious Diseases: None - Past Medical History & Family History Past Medical History?: Yes - Past Social History Smoking Status: Heavy Smoker > 10 Cigarettes Daily - CARDIAC Hx Hypertension: Yes - PULMONARY Hx Chronic Obstructive Pulmonary Disease (COPD): Yes Other/Comment: Heavy smoker - NEUROLOGICAL Hx Migraine: Yes Hx Transient Ischemic Attacks (TIA): Yes - HEENT Hx HEENT Problems: No - RENAL Hx Chronic Kidney Disease: No - ENDOCRINE/METABOLIC Hx Endocrine Disorders: Yes Hx Diabetes Mellitus Type 2: Yes - HEMATOLOGICAL/ONCOLOGICAL Hx Anemia: Yes - INTEGUMENTARY Hx Dermatological Problems: No - MUSCULOSKELETAL/RHEUMATOLOGICAL Hx Arthritis: Yes Hx Rheumatoid Arthritis: Yes - GASTROINTESTINAL Hx Gastrointestinal Disorders: No - GENITOURINARY/GYNECOLOGICAL Hx Genitourinary Disorders: No - PSYCHIATRIC Hx Bipolar Disorder: Yes Hx Depression: Yes Hx Schizophrenia: Yes (since 2003) Hx Substance Use: No - SURGICAL HISTORY Hx Coronary Artery Bypass Graft: No - ANESTHESIA Hx Anesthesia: Yes Hx Anesthesia Reactions: No Hx Malignant Hyperthermia: No Meds Allergies/Adverse Reactions: Allergies Allergy/AdvReac Type Severity Reaction Status Date / Time banana Allergy ANAPHYLAXIS Verified 08/19/18 17:35 Physical Exam - Constitutional Appears: Non-toxic, No Acute Distress - Head Exam Head Exam: ATRAUMATIC, NORMAL INSPECTION, NORMOCEPHALIC - Eye Exam Eye Exam: EOMI, Normal appearance, PERRL Pupil Exam: NORMAL ACCOMODATION - ENT Exam ENT Exam: Mucous Membranes Moist, Normal Exam - Neck Exam Neck exam: Positive for: Normal Inspection - Respiratory Exam Respiratory Exam: Clear to Auscultation Bilateral, NORMAL BREATHING PATTERN. absent: Accessory Muscle Use, Chest Wall Tenderness, Decreased Breath Sounds, Prolonged Expiratory Phase, Rhonchi, Wheezes, Respiratory Distress, Stridor - Cardiovascular Exam Cardiovascular Exam: REGULAR RHYTHM, +S1 - GI/Abdominal Exam GI & Abdominal Exam: Normal Bowel Sounds, Soft. absent: Tenderness - Extremities Exam Extremities exam: Positive for: normal inspection, pedal pulses present. Negative for: calf tenderness, pedal edema - Back Exam Back exam: NORMAL INSPECTION. absent: CVA tenderness (L), CVA tenderness (R) - Neurological Exam Neurological exam: Alert, CN II-XII Intact, Oriented x3 Additional comments: negative marita hallpike - Psychiatric Exam Psychiatric exam: Normal Affect, Normal Mood - Skin Skin Exam: Dry, Intact, Normal Color, Warm Results - Vital Signs Recent Vital Signs: Last Vital Signs Temp 98.2 F 08/19/18 17:46 Pulse 81 08/19/18 20:33 Resp 18 08/19/18 20:33 BP 153/82 H 08/19/18 20:33 Pulse Ox 97 08/19/18 20:33 - Labs Result Diagrams: 08/19/18 18:41 08/19/18 18:41 Labs: Laboratory Results - last 24 hr 08/19/18 08/19/18 08/19/18 18:41 18:41 18:41 WBC 7.2 D RBC 3.77 Hgb 10.4 L Hct 33.8 L MCV 89.7 MCH 27.6 MCHC 30.8 L RDW 14.2 Plt Count 240 MPV 10.5 Neut % (Auto) 70.1 H Lymph % (Auto) 22.9 Amador % (Auto) 6.9 H Eos % (Auto) 0.1 L Baso % (Auto) 0.0 Lymph # (Auto) 1.7 [place] # (Auto) 0.5 Eos # (Auto) 0.0 Baso # (Auto) 0.00 Absolute Neuts (auto) 5.06 PT 11.1 INR 1.00 APTT 32.9 Sodium 141 Potassium 4.1 Chloride 102 Carbon Dioxide 31 Anion Gap 12 BUN 14 Creatinine 0.7 Est GFR ( Amer) > 60 Est GFR (Non-Af Amer) > 60 Random Glucose 137 H Calcium 9.4 Total Bilirubin 0.2 AST 25 ALT 14 Alkaline Phosphatase 117 Lactate Dehydrogenase 444 Total Creatine Kinase 86 Troponin I < 0.01 NT-Pro-B Natriuret Pep 206 Total Protein 7.5 Albumin 4.1 Globulin 3.4 Albumin/Globulin Ratio 1.2 Influenza Typ A,B (EIA) 08/19/18 18:41 WBC RBC Hgb Hct MCV MCH MCHC RDW Plt Count MPV Neut % (Auto) Lymph % (Auto) [place] % (Auto) Eos % (Auto) Baso % (Auto) Lymph # (Auto) [place] # (Auto) Eos # (Auto) Baso # (Auto) Absolute Neuts (auto) PT INR APTT Sodium Potassium Chloride Carbon Dioxide Anion Gap BUN Creatinine Est GFR ( Amer) Est GFR (Non-Af Amer) Random Glucose Calcium Total Bilirubin AST ALT Alkaline Phosphatase Lactate Dehydrogenase Total Creatine Kinase Troponin I NT-Pro-B Natriuret Pep Total Protein Albumin Globulin Albumin/Globulin Ratio Influenza Typ A,B (EIA) Negative for flu a/b Assessment & Plan - Assessment and Plan (Free Text) Assessment: Dizziness, unknown etiology - Cardiology consulted (Dr. Mueller); recommendations appreciated - [place] Hallpike maneuver performed and negative - F/U Vitamin B12, Folate, TSH - Troponin Q6H x2 - EKG Q6H x2 - Neuro checks Q4 - Fall precaution - Monitor Chest Pain ACS rule-out - Troponin negative x1 - EKG: NSR no ST changes - Cardiology consulted (Dr. Mueller); recommendations appreciated - F/U Troponin Q6H x2 - F/U EKG Q6H x2 - F/U: Lipid panel, HgbA1C, TSH - ASA 325 (total 243mg taken at home, per Patient, 1 dose 81mg given in ED) - Lipitor - Monitor Foreign Body in R Ear - ENT consulted (Dr. Patel); recommendations appreciated HTN - C/W home medications - Monitor HLD - F/U lipid panel - Continue with home meds DM - Hga1c 6.6 11/17/17 - F/U HgbA1C - ISS - medium - Accucheck ACHS - Hypoglycemic protocol - Monitor COPD - Controlled - Duoneb PRN SOB - Monitor Normocytic Anemia - Hgb at baseline 10.4 - F/U Iron studies - F/U H/H in AM Bipolar disorder - Controlled - C/w home medications GERD - Protonix Prophylaxis - DVT: lovenox 40mg SC daily - GI: protonix 40mg PO daily Discussed with Dr. Julee Lewis PGY1 <Cristóbal Ladd - Last Filed: 08/20/18 20:21> Results - Vital Signs Recent Vital Signs: Last Vital Signs Temp 98.1 F 08/20/18 17:31 Pulse 65 08/20/18 17:31 Resp 18 08/20/18 17:31 BP 186/80 H 08/20/18 17:31 Pulse Ox 94 L 08/20/18 17:31 - Labs Result Diagrams: 08/20/18 06:10 08/20/18 06:10 Labs: Laboratory Results - last 24 hr 08/19/18 08/19/18 08/19/18 18:30 20:45 22:55 WBC RBC Hgb Hct MCV MCH MCHC RDW Plt Count MPV Neut % (Auto) Lymph % (Auto) [place] % (Auto) Eos % (Auto) Baso % (Auto) Lymph # (Auto) [place] # (Auto) Eos # (Auto) Baso # (Auto) Absolute Neuts (auto) Sodium Potassium Chloride Carbon Dioxide Anion Gap BUN Creatinine Est GFR ( Amer) Est GFR (Non-Af Amer) POC Glucose (mg/dL) 177 H Random Glucose Hemoglobin A1c Calcium Phosphorus Magnesium Total Bilirubin AST ALT Alkaline Phosphatase Troponin I Total Protein Albumin Globulin Albumin/Globulin Ratio Triglycerides Cholesterol LDL Cholesterol Direct HDL Cholesterol Vitamin B12 Folate Free T4 Total T3 TSH 3rd Generation Urine Color Yellow Urine Appearance Clear Urine pH 8.0 Ur Specific [place] 1.015 Urine Protein Negative Urine Glucose (UA) Negative Urine Ketones Negative Urine Blood Negative Urine Nitrate Negative Urine Bilirubin Negative Urine Urobilinogen 0.2 Ur Leukocyte Esterase Negative Urine Opiates Screen Negative Urine Methadone Screen Negative Ur Barbiturates Screen Positive H Ur Phencyclidine Scrn Negative Ur Amphetamines Screen Negative U Benzodiazepines Scrn Negative U Oth Cocaine Metabols Negative U Cannabinoids Screen Negative 08/20/18 08/20/18 08/20/18 01:05 06:10 06:10 WBC RBC Hgb Hct MCV MCH MCHC RDW Plt Count MPV Neut % (Auto) Lymph % (Auto) [place] % (Auto) Eos % (Auto) Baso % (Auto) Lymph # (Auto) [place] # (Auto) Eos # (Auto) Baso # (Auto) Absolute Neuts (auto) Sodium 141 Potassium 3.7 Chloride 103 Carbon Dioxide 31 Anion Gap 11 BUN 12 Creatinine 0.7 Est GFR ( Amer) > 60 Est GFR (Non-Af Amer) > 60 POC Glucose (mg/dL) Random Glucose 152 H Hemoglobin A1c 6.9 H Calcium 9.5 Phosphorus 3.6 Magnesium 2.0 Total Bilirubin 0.2 AST 24 ALT 13 Alkaline Phosphatase 113 Troponin I < 0.01 < 0.01 Total Protein 7.5 Albumin 4.1 Globulin 3.3 Albumin/Globulin Ratio 1.2 Triglycerides 153 Cholesterol 128 L LDL Cholesterol Direct 41 HDL Cholesterol 71 H Vitamin B12 545 Folate > 20.0 Free T4 Total T3 TSH 3rd Generation Urine Color Urine Appearance Urine pH Ur Specific [place] Urine Protein Urine Glucose (UA) Urine Ketones Urine Blood Urine Nitrate Urine Bilirubin Urine Urobilinogen Ur Leukocyte Esterase Urine Opiates Screen Urine Methadone Screen Ur Barbiturates Screen Ur Phencyclidine Scrn Ur Amphetamines Screen U Benzodiazepines Scrn U Oth Cocaine Metabols U Cannabinoids Screen 08/20/18 08/20/18 08/20/18 06:10 06:10 08:22 WBC 6.4 RBC 3.83 Hgb 10.4 L Hct 34.0 L MCV 88.8 MCH 27.2 MCHC 30.6 L RDW 14.2 Plt Count 242 MPV 10.6 Neut % (Auto) 64.7 Lymph % (Auto) 29.8 [place] % (Auto) 5.0 Eos % (Auto) 0.5 L Baso % (Auto) 0.0 Lymph # (Auto) 1.9 [place] # (Auto) 0.3 Eos # (Auto) 0.0 Baso # (Auto) 0.00 Absolute Neuts (auto) 4.14 Sodium Potassium Chloride Carbon Dioxide Anion Gap BUN Creatinine Est GFR ( Amer) Est GFR (Non-Af Amer) POC Glucose (mg/dL) 104 Random Glucose Hemoglobin A1c Calcium Phosphorus Magnesium Total Bilirubin AST ALT Alkaline Phosphatase Troponin I Total Protein Albumin Globulin Albumin/Globulin Ratio Triglycerides Cholesterol LDL Cholesterol Direct HDL Cholesterol Vitamin B12 Folate Free T4 Total T3 TSH 3rd Generation 5.98 H Urine Color Urine Appearance Urine pH Ur Specific [place] Urine Protein Urine Glucose (UA) Urine Ketones Urine Blood Urine Nitrate Urine Bilirubin Urine Urobilinogen Ur Leukocyte Esterase Urine Opiates Screen Urine Methadone Screen Ur Barbiturates Screen Ur Phencyclidine Scrn Ur Amphetamines Screen U Benzodiazepines Scrn U Oth Cocaine Metabols U Cannabinoids Screen 08/20/18 08/20/18 08/20/18 08:50 11:24 17:19 WBC RBC Hgb Hct MCV MCH MCHC RDW Plt Count MPV Neut % (Auto) Lymph % (Auto) [place] % (Auto) Eos % (Auto) Baso % (Auto) Lymph # (Auto) [place] # (Auto) Eos # (Auto) Baso # (Auto) Absolute Neuts (auto) Sodium Potassium Chloride Carbon Dioxide Anion Gap BUN Creatinine Est GFR ( Amer) Est GFR (Non-Af Amer) POC Glucose (mg/dL) 161 H 116 H Random Glucose Hemoglobin A1c Calcium Phosphorus Magnesium Total Bilirubin AST ALT Alkaline Phosphatase Troponin I Total Protein Albumin Globulin Albumin/Globulin Ratio Triglycerides Cholesterol LDL Cholesterol Direct HDL Cholesterol Vitamin B12 Folate Free T4 0.70 L Total T3 0.93 L TSH 3rd Generation Urine Color Urine Appearance Urine pH Ur Specific [place] Urine Protein Urine Glucose (UA) Urine Ketones Urine Blood Urine Nitrate Urine Bilirubin Urine Urobilinogen Ur Leukocyte Esterase Urine Opiates Screen Urine Methadone Screen Ur Barbiturates Screen Ur Phencyclidine Scrn Ur Amphetamines Screen U Benzodiazepines Scrn U Oth Cocaine Metabols U Cannabinoids Screen Attending/Attestation - Attestation I have personally seen and examined this patient.: Yes I have fully participated in the care of the patient.: Yes I have reviewed all pertinent clinical information: Yes Notes (Text): 08/20/18 20:21 seen and examined. Discussed with resident. A&P as above. Pt. with multiple complaints.
[2018-08-19] MEDS ORDERED: Albuterol-Ipratrop 3 mg / 0.5 (3 ml) UD IH PRN (22:04)
[2018-08-19] MEDS ORDERED: Dextrose 50% SYRINGE Inj (50 ml) IV PRN (22:12)
[2018-08-19 23:31] LABS: URINE APPEARANCE CLEAR (CLEAR); URINE BILIRUBIN NEGATIVE (NEGATIVE); URINE BLOOD NEGATIVE (NEGATIVE); URINE COLOR YELLOW (YELLOW); URINE GLUCOSE (UA) NEGATIVE (NEGATIVE); URINE LEUKOCYTE ESTERASE NEGATIVE Leu/uL (NEGATIVE); URINE PROTEIN NEGATIVE mg/dL (<30 mg/dL); URINE UROBILINOGEN 0.2 E.U./dL (<1 E.U./dL)
[2018-08-20 00:38] LABS: BENZODIAZEPINES, UR NEGATIVE (NEGATIVE)
[2018-08-20 00:41] LABS: BARBITURATES, UR POSITIVE (NEGATIVE); OPIATES, UR NEGATIVE (NEGATIVE); PHENCYCLIDINE, UR NEGATIVE (NEGATIVE)
[2018-08-20] MEDS: Pantoprazole 40 mg EC Tab PO SCH (06:25)
[2018-08-20 06:54] LABS: EOS % 0.5 % (1.5-5.0); HEMOGLOBIN 10.4 g/dL (12.0-16.0); LYMPH # 1.9 (1.2-3.4); LYMPH % 29.8 % (22.0-35.0); MEAN CELL VOLUME 88.8 fl (80.0-105.0); MEAN CORPUSCULAR HEMOGLOBIN 27.2 pg (25.0-35.0); MEAN CORPUSCULAR HGB CONC 30.6 g/dl (31.0-37.0); MEAN PLATELET VOLUME 10.6 fl (7.0-11.0); MONO # 0.3 (0.1-0.6); RBC 3.83 10^6/uL (3.5-6.1); RED CELL DISTRIBUTION WIDTH 14.2 % (11.5-14.5); WHITE BLOOD COUNT 6.4 10^3/uL (4.5-11.0)
[2018-08-20 06:57] LABS: ALB/GLOB RATIO 1.2 (1.1-1.8); ALBUMIN 4.1 g/dL (3.0-4.8); ALT/SGPT 13 U/L (7-56); AST/SGOT 24 U/L (14-36); BLOOD UREA NITROGEN 12 mg/dL (7-21); CALCIUM 9.5 mg/dL (8.4-10.5); GFR NON-AFRICAN AMERICAN > 60; HDL CHOLESTEROL 71 mg/dL (29-60)
[2018-08-20 07:08] LABS: LDL CHOLESTEROL 41 mg/dL (0-129); TROPONIN I < 0.01 ng/mL
--- NOTE | 2018-08-20 07:14 | CP.PCM.PN ---
<Ash Rosales - Last Filed: 08/20/18 16:38> Subjective - Date & Time of Evaluation Date of Evaluation: 08/20/18 Time of Evaluation: 07:14 - Subjective Subjective: PGY-1 Medicine Progress note for Dr. Chase Patient seen and examined at bedside. Patient states that her dizziness has resolved after ENT doctor removed the foreign objects. She still complains of tingling in her upper extremities. She denies fevers, chills, shortness of breath, chest pain, abdominal pain, or any other complaints. Objective - Vital Signs/Intake and Output Vital Signs (last 24 hours): Temp Pulse Resp BP Pulse Ox 98.2 F 67 18 155/89 H 97 08/20/18 06:00 08/20/18 06:00 08/20/18 06:00 08/20/18 06:00 08/20/18 06:00 Intake and Output: 08/20/18 08/20/18 06:59 18:59 Intake Total 440 Balance 440 - Medications Medications: Current Medications Acetaminophen/Butalbital/Caffeine (Fioricet) 1 tab PO TID [facility] Albuterol/Ipratropium (Duoneb 3 Mg/0.5 Mg (3 Ml) Ud) 3 ml IH Q2H PRN PRN Reason: Shortness of Breath Amlodipine Besylate (Norvasc) 5 mg PO DAILY [facility] Aripiprazole (Abilify) 15 mg PO DAILY [facility]; Protocol Atorvastatin Calcium (Lipitor) 40 mg PO DAILY [facility] Clonazepam (Klonopin) 1 mg PO Q12 [facility]; Protocol Last Admin: 08/19/18 23:27 Dose: 1 mg Dextrose (Dextrose 50% Inj) 0 ml IV STAT PRN; Protocol PRN Reason: Hypoglycemia Protocol Enoxaparin Sodium (Lovenox) 40 mg SC DAILY [facility]; Protocol Dextrose (Dextrose 5% In Water 1000 Ml) 1,000 mls @ 0 mls/hr IV .Q0M PRN; Protocol PRN Reason: Hypoglycemia Protocol Insulin Human Regular (Humulin R Med) 0 units SC ACHS [facility]; Protocol Lisinopril (Zestril) 10 mg PO DAILY [facility] Metoprolol Tartrate (Lopressor) 25 mg PO BID [facility] Multivitamins/Minerals (Therapeutic-M Tab) 1 tab PO DAILY [facility] Pantoprazole Sodium (Protonix Ec Tab) 40 mg PO 0600 [facility] Quetiapine Fumarate (Seroquel) 400 mg PO HS [facility] Last Admin: 08/19/18 23:42 Dose: 400 mg Sertraline HCl (Zoloft) 100 mg PO QAM [facility] - Labs Labs: 08/20/18 06:10 08/20/18 06:10 PT 11.1 SECONDS (9.4-12.5) 08/19/18 18:41 INR 1.00 08/19/18 18:41 APTT 32.9 Seconds (26.9-38.3) 08/19/18 18:41 - Additional Findings Additional findings: - Constitutional Appears: Non-toxic, No Acute Distress - Head Exam Head Exam: ATRAUMATIC, NORMAL INSPECTION, NORMOCEPHALIC - Eye Exam Eye Exam: EOMI, Normal appearance, PERRL Pupil Exam: NORMAL ACCOMODATION - ENT Exam ENT Exam: Mucous Membranes Moist, Normal Exam - Neck Exam Neck exam: Positive for: Normal Inspection - Respiratory Exam Respiratory Exam: Clear to Auscultation Bilateral, NORMAL BREATHING PATTERN. absent: Accessory Muscle Use, Chest Wall Tenderness, Decreased Breath Sounds, Prolonged Expiratory Phase, Rhonchi, Wheezes, Respiratory Distress, Stridor - Cardiovascular Exam Cardiovascular Exam: REGULAR RHYTHM, +S1 - GI/Abdominal Exam GI & Abdominal Exam: Normal Bowel Sounds, Soft. absent: Tenderness - Extremities Exam Extremities exam: Positive for: normal inspection, pedal pulses present. Negative for: calf tenderness, pedal edema - Back Exam Back exam: NORMAL INSPECTION. absent: CVA tenderness (L), CVA tenderness (R) - Neurological Exam Neurological exam: Alert, CN II-XII Intact, Oriented x3 - Muscle strength 5/5 and sensations intact in all extremities - Psychiatric Exam Psychiatric exam: Normal Affect, Normal Mood - Skin Skin Exam: Dry, Intact, Normal Color, Warm Assessment and Plan - Assessment and Plan (Free Text) Assessment: Patient is a 63-year-old female with PMH significant for COPD, HTN, TIA, diabetes, anemia, GERD, HLD, bipolar disorder, and schizophrenia presents who presents with dizziness and upper extremities tingling. Plan: Dizziness - Patient states that dizziness has resolved after ENT DrShaji removed the foreign object from her ear - [place] Hallpike maneuver performed and negative - Vitamin B12, Folate: WNL - Neuro checks Q4 - Fall precautions - PT cleared patient from discharge Paresthesia in upper extremities - Likely 2/2 to diabetic neuropathy, r/o CVA - Follow up Brain MRI - Continue home Gabapentin Chest Pain ACS rule-out - Troponin negative x3 - EKG: NSR no ST changes - Cardiology consulted (Dr. Mueller)- Cleared for discharge, follow up for outpatient stress test - Lipid panel: WNL - Continue with Lipitor, ASA Foreign Body in R Ear, resolved - ENT consulted (Dr. Patel) - Foreign body removed - Instructed patient not to put anything into her ears Hypothyroidism - TSH high, Free T4 and Total T3 Low - Start Levothyroxine 25mg QD Hypertension - Continue home medications Amlodipine 5mg QD, Zestril 10mg QD, Lopressor 25mg BID, - Continue to monitor HLD - Lipid panel WNL - Continue with home Lipitor 40mg QD DM - Hga1c 6.6 11/17/17 - HgbA1C: 6.9 - ISS - medium - Accucheck ACHS - Hypoglycemic protocol - Monitor COPD - Controlled - Duoneb PRN Normocytic Anemia - H&H stable Bipolar disorder - C/w home medications Abilify, Klonopin, Seroquel, Zoloft Prophylaxis - DVT: lovenox 40mg SC daily - GI: protonix 40mg PO daily Patient seen and case discussed with attending, Dr. Chase. Ash Rosales, PGY-1 <Zi Chase - Last Filed: 08/22/18 11:57> Objective - Vital Signs/Intake and Output Vital Signs (last 24 hours): Temp Pulse Resp BP Pulse Ox 98.3 F 96 H 20 152/77 H 96 08/21/18 06:00 08/21/18 10:27 08/21/18 06:00 08/21/18 10:27 08/21/18 06:00 - Labs Labs: 08/21/18 07:00 08/21/18 07:00 PT 11.1 SECONDS (9.4-12.5) 08/19/18 18:41 INR 1.00 08/19/18 18:41 APTT 32.9 Seconds (26.9-38.3) 08/19/18 18:41 Attending/Attestation - Attestation I have personally seen and examined this patient.: Yes I have fully participated in the care of the patient.: Yes I have reviewed all pertinent clinical information, including history, physical exam and plan: Yes Notes (Text): 08/22/18 11:57 Medical record note made by the resident after discussion with my direction and input after the patient was personally seen and examined by me. I have reviewed the chart and agree that the record accurately reflects by personal performance of the history, physical exam, data review, and medical decision-making, in the course for the patient. I have also personally directed the plan of care.
--- NOTE | 2018-08-20 08:51 | CT ---
Date of service: 08/19/2018 PROCEDURE: CT HEAD WITHOUT CONTRAST. HISTORY: dizziness COMPARISON: 07/04/2014 TECHNIQUE: Axial computed tomography images were obtained through the head/brain without intravenous contrast. Radiation dose: Total exam DLP = 885.35 mGy-cm. This CT exam was performed using one or more of the following dose reduction techniques: Automated exposure control, adjustment of the mA and/or kV according to patient size, and/or use of iterative reconstruction technique. FINDINGS: HEMORRHAGE: No intracranial hemorrhage. BRAIN: No mass effect or edema. No atrophy or chronic microvascular ischemic changes. VENTRICLES: Unremarkable. No hydrocephalus. CALVARIUM: Unremarkable. PARANASAL SINUSES: Unremarkable as visualized. No significant inflammatory changes. MASTOID AIR CELLS: Unremarkable as visualized. No inflammatory changes. OTHER FINDINGS: The report concurs with the preliminary [facility] report IMPRESSION: No acute intracranial findings
--- NOTE | 2018-08-20 09:22 | RAD ---
Date of service: 08/19/2018 PROCEDURE: CHEST RADIOGRAPH, 1 VIEW HISTORY: weakness COMPARISON: 03/19/2017 FINDINGS: LUNGS: Clear. PLEURA: No pneumothorax or pleural fluid seen. CARDIOVASCULAR: No aortic atherosclerotic calcification present. Normal. OSSEOUS STRUCTURES: No significant abnormalities. VISUALIZED UPPER ABDOMEN: Normal. OTHER FINDINGS: None. IMPRESSION: No active disease.
[2018-08-20] MEDS: Multivitamin With Minerals Tab PO SCH (09:33)
[2018-08-20] MEDS: Apap-Butalbital-Caffeine 325-50-40mg Tab PO SCH ×3 (09:33→17:20)
[2018-08-20] MEDS: Insulin Reg-MEDIUM-Coverage SC SCH ×2 (09:34→17:21)
[2018-08-20 09:42] LABS: FREE T4 0.7 ng/dL (0.78-2.19)
[2018-08-20 09:55] LABS: T3 0.93 ng/mL (0.97-1.69)
--- NOTE | 2018-08-20 09:56 | CARD ---
APPROVED REPORT Date of service: 08/19/2018 EKG Measurement Heart [id number] <Conclusion> Normal sinus rhythm Normal ECG
[2018-08-20 12:00] LABS: FOLATE > 20.0 ng/mL
--- NOTE | 2018-08-20 12:38 | CON ---
DATE OF CONSULTATION: 08/20/2018 CARDIOLOGY CONSULTATION HISTORY: The patient is a 63-year-old woman, who presents with epigastric chest pain and palpitations. The patient has an anxiety disorder. The patient had similar symptoms in the past, in which she underwent cardiac catheterization a egwk-cfl-n-half ago. Her coronary arteries revealed nonobstructive CAD with normal LV function. She suffers from diabetes mellitus, hypertension and hypercholesterolemia. Currently, the patient is mostly anxious and complaining of palpitations. awake overnight monitor reveals no arrhythmias. SOCIAL HISTORY: She denies smoking. REVIEW OF SYSTEMS: A 14-point review of systems is reviewed in detail. No cardiac additional symptomatology is elicited. PHYSICAL EXAMINATION: VITAL SIGNS: Stable. NECK: Negative JVD. LUNGS: Without rales. HEART: Reveals S1, S2. EXTREMITIES: Without edema. LABORATORY DATA: Laboratories revealed an EKG is unremarkable. Troponins are negative x3. IMPRESSION: 1. Atypical chest pain. 2. Palpitations. 3. Diabetes mellitus. 4. Hypertension. 5. Hypercholesterolemia. There is no evidence for acute coronary syndrome. PLAN: Given these findings, the patient can be discharged today. We will arrange for an outpatient stress test. Bon Mueller MD
[2018-08-20] MEDS: Enoxaparin 40 mg Syringe SC SCH (13:44)
--- NOTE | 2018-08-20 15:42 | CP.PCM.CON ---
History of Present Illness - History of Present Illness History of Present Illness: 63 y/o female with PMHx significant for COPD, HTN, TIA, DM< anemia, GERD, HLD, Bipolar d/o and schizophrenia was admitted to [facility] with dizziness and fatigue over a several month period. ENT was consulted for foreign body in left ear. Pt seen and examined with agreement. The patient states that she was using qtips a few weeks ago and a piece of the qtip became stuck in the the patient's ear. Pt having mild pain Review of Systems - Review of Systems Systems not reviewed;Unavailable: Acuity of Condition - Constitutional Constitutional: As Per HPI - EENT Eyes: As Per HPI Ears: As Per HPI Nose/Mouth/Throat: As Per HPI - Breasts Breasts: As Per HPI - Cardiovascular Cardiovascular: As Per HPI - Respiratory Respiratory: As Per HPI - Gastrointestinal Gastrointestinal: As Per HPI - Genitourinary Genitourinary: As Per HPI - Reproductive: Female Reproductive:Female: As Per HPI - Menstruation Menstruation: As Per HPI - Musculoskeletal Musculoskeletal: As Per HPI - Integumentary Integumentary: As Per HPI - Neurological Neurological: As Per HPI - Psychiatric Psychiatric: As Per HPI - Endocrine Endocrine: As Per HPI - Hematologic/Lymphatic Hematologic: As Per HPI Past Patient History - Infectious Disease Hx of Infectious Diseases: None - Past Medical History & Family History Past Medical History?: Yes - Past Social History Smoking Status: Heavy Smoker > 10 Cigarettes Daily - CARDIAC Hx Hypercholesterolemia: Yes (HLD) Hx Hypertension: Yes - PULMONARY Hx Chronic Obstructive Pulmonary Disease (COPD): Yes - NEUROLOGICAL Hx Migraine: Yes Hx Transient Ischemic Attacks (TIA): Yes - HEENT Hx HEENT Problems: No - RENAL Hx Chronic Kidney Disease: No - ENDOCRINE/METABOLIC Hx Diabetes Mellitus Type 2: Yes - HEMATOLOGICAL/ONCOLOGICAL Hx Anemia: Yes - INTEGUMENTARY Hx Dermatological Problems: No - MUSCULOSKELETAL/RHEUMATOLOGICAL Hx Rheumatoid Arthritis: Yes - GASTROINTESTINAL Hx Gastrointestinal Disorders: No - GENITOURINARY/GYNECOLOGICAL Hx Genitourinary Disorders: No - PSYCHIATRIC Hx Bipolar Disorder: Yes Hx Depression: Yes Hx Schizophrenia: Yes (since 2003) - SURGICAL HISTORY Hx Orthopedic Surgery: Yes - ANESTHESIA Hx Anesthesia: Yes Hx Anesthesia Reactions: No Hx Malignant Hyperthermia: No Meds Allergies/Adverse Reactions: Allergies Allergy/AdvReac Type Severity Reaction Status Date / Time banana Allergy ANAPHYLAXIS Verified 08/19/18 17:35 - Medications Medications: Current Medications Acetaminophen/Butalbital/Caffeine (Fioricet) 1 tab PO TID [facility] Last Admin: 08/20/18 13:43 Dose: 1 tab Albuterol/Ipratropium (Duoneb 3 Mg/0.5 Mg (3 Ml) Ud) 3 ml IH Q2H PRN PRN Reason: Shortness of Breath Amlodipine Besylate (Norvasc) 5 mg PO DAILY [facility] Last Admin: 08/20/18 09:32 Dose: 5 mg Aripiprazole (Abilify) 15 mg PO DAILY [facility]; Protocol Last Admin: 08/20/18 09:31 Dose: 15 mg Atorvastatin Calcium (Lipitor) 40 mg PO DAILY [facility] Last Admin: 08/20/18 09:32 Dose: 40 mg Clonazepam (Klonopin) 1 mg PO Q12 [facility]; Protocol Last Admin: 08/20/18 09:32 Dose: 1 mg Dextrose (Dextrose 50% Inj) 0 ml IV STAT PRN; Protocol PRN Reason: Hypoglycemia Protocol Enoxaparin Sodium (Lovenox) 40 mg SC DAILY [facility]; Protocol Last Admin: 08/20/18 13:44 Dose: 40 mg Dextrose (Dextrose 5% In Water 1000 Ml) 1,000 mls @ 0 mls/hr IV .Q0M PRN; Protocol PRN Reason: Hypoglycemia Protocol Insulin Human Regular (Humulin R Med) 0 units SC ACHS [facility]; Protocol Last Admin: 08/20/18 09:34 Dose: Not Given Levothyroxine Sodium (Synthroid) 25 mcg PO 0600 [facility] Lisinopril (Zestril) 10 mg PO DAILY [facility] Last Admin: 08/20/18 09:32 Dose: 10 mg Metoprolol Tartrate (Lopressor) 25 mg PO BID [facility] Last Admin: 08/20/18 09:31 Dose: 25 mg Multivitamins/Minerals (Therapeutic-M Tab) 1 tab PO DAILY [facility] Last Admin: 08/20/18 09:33 Dose: 1 tab Pantoprazole Sodium (Protonix Ec Tab) 40 mg PO 0600 [facility] Last Admin: 08/20/18 06:25 Dose: 40 mg Quetiapine Fumarate (Seroquel) 400 mg PO HS [facility] Last Admin: 08/19/18 23:42 Dose: 400 mg Sertraline HCl (Zoloft) 100 mg PO QAM [facility] Last Admin: 08/20/18 09:44 Dose: 100 mg Physical Exam - Constitutional Appears: Well, Non-toxic - Head Exam Head Exam: ATRAUMATIC, NORMAL INSPECTION - Eye Exam Eye Exam: EOMI, Normal appearance, PERRL Pupil Exam: NORMAL ACCOMODATION - ENT Exam ENT Exam: Mucous Membranes Moist, Normal Exam Additional comments: Ears: right wnl EAC and TM left: foreign body left ear - head of qtip removed from EAC with alligator forceps Nose: wnl no erythema/inflammation Throat: wnl neck: wnl - Neck Exam Neck exam: Positive for: Normal Inspection Results - Vital Signs Recent Vital Signs: Last Vital Signs Temp 98.1 F 08/20/18 14:00 Pulse 65 08/20/18 14:00 Resp 18 08/20/18 14:00 BP 186/80 H 08/20/18 14:00 Pulse Ox 94 L 08/20/18 14:00 - Labs Result Diagrams: 08/20/18 06:10 08/20/18 06:10 Labs: Laboratory Results - last 24 hr 08/19/18 08/19/18 08/19/18 18:30 18:41 18:41 WBC 7.2 D RBC 3.77 Hgb 10.4 L Hct 33.8 L MCV 89.7 MCH 27.6 MCHC 30.8 L RDW 14.2 Plt Count 240 MPV 10.5 Neut % (Auto) 70.1 H Lymph % (Auto) 22.9 Lyon % (Auto) 6.9 H Eos % (Auto) 0.1 L Baso % (Auto) 0.0 Lymph # (Auto) 1.7 Lyon # (Auto) 0.5 Eos # (Auto) 0.0 Baso # (Auto) 0.00 Absolute Neuts (auto) 5.06 PT 11.1 INR 1.00 APTT 32.9 Sodium Potassium Chloride Carbon Dioxide Anion Gap BUN Creatinine Est GFR ( Amer) Est GFR (Non-Af Amer) POC Glucose (mg/dL) 177 H Random Glucose Hemoglobin A1c Calcium Phosphorus Magnesium Total Bilirubin AST ALT Alkaline Phosphatase Lactate Dehydrogenase Total Creatine Kinase Troponin I NT-Pro-B Natriuret Pep Total Protein Albumin Globulin Albumin/Globulin Ratio Triglycerides Cholesterol LDL Cholesterol Direct HDL Cholesterol Vitamin B12 Folate Free T4 Total T3 TSH 3rd Generation Urine Color Urine Appearance Urine pH Ur Specific [place] Urine Protein Urine Glucose (UA) Urine Ketones Urine Blood Urine Nitrate Urine Bilirubin Urine Urobilinogen Ur Leukocyte Esterase Urine Opiates Screen Urine Methadone Screen Ur Barbiturates Screen Ur Phencyclidine Scrn Ur Amphetamines Screen U Benzodiazepines Scrn U Oth Cocaine Metabols U Cannabinoids Screen Influenza Typ A,B (EIA) 08/19/18 08/19/18 08/19/18 18:41 18:41 20:45 WBC RBC Hgb Hct MCV MCH MCHC RDW Plt Count MPV Neut % (Auto) Lymph % (Auto) Lyon % (Auto) Eos % (Auto) Baso % (Auto) Lymph # (Auto) Lyon # (Auto) Eos # (Auto) Baso # (Auto) Absolute Neuts (auto) PT INR APTT Sodium 141 Potassium 4.1 Chloride 102 Carbon Dioxide 31 Anion Gap 12 BUN 14 Creatinine 0.7 Est GFR ( Amer) > 60 Est GFR (Non-Af Amer) > 60 POC Glucose (mg/dL) Random Glucose 137 H Hemoglobin A1c Calcium 9.4 Phosphorus Magnesium Total Bilirubin 0.2 AST 25 ALT 14 Alkaline Phosphatase 117 Lactate Dehydrogenase 444 Total Creatine Kinase 86 Troponin I < 0.01 NT-Pro-B Natriuret Pep 206 Total Protein 7.5 Albumin 4.1 Globulin 3.4 Albumin/Globulin Ratio 1.2 Triglycerides Cholesterol LDL Cholesterol Direct HDL Cholesterol Vitamin B12 Folate Free T4 Total T3 TSH 3rd Generation Urine Color Urine Appearance Urine pH Ur Specific [place] Urine Protein Urine Glucose (UA) Urine Ketones Urine Blood Urine Nitrate Urine Bilirubin Urine Urobilinogen Ur Leukocyte Esterase Urine Opiates Screen Negative Urine Methadone Screen Negative Ur Barbiturates Screen Positive H Ur Phencyclidine Scrn Negative Ur Amphetamines Screen Negative U Benzodiazepines Scrn Negative U Oth Cocaine Metabols Negative U Cannabinoids Screen Negative Influenza Typ A,B (EIA) Negative for flu a/b 08/19/18 08/20/18 08/20/18 22:55 01:05 06:10 WBC RBC Hgb Hct MCV MCH MCHC RDW Plt Count MPV Neut % (Auto) Lymph % (Auto) Lyon % (Auto) Eos % (Auto) Baso % (Auto) Lymph # (Auto) Lyon # (Auto) Eos # (Auto) Baso # (Auto) Absolute Neuts (auto) PT INR APTT Sodium Potassium Chloride Carbon Dioxide Anion Gap BUN Creatinine Est GFR ( Amer) Est GFR (Non-Af Amer) POC Glucose (mg/dL) Random Glucose Hemoglobin A1c 6.9 H Calcium Phosphorus Magnesium Total Bilirubin AST ALT Alkaline Phosphatase Lactate Dehydrogenase Total Creatine Kinase Troponin I < 0.01 NT-Pro-B Natriuret Pep Total Protein Albumin Globulin Albumin/Globulin Ratio Triglycerides Cholesterol LDL Cholesterol Direct HDL Cholesterol Vitamin B12 Folate Free T4 Total T3 TSH 3rd Generation Urine Color Yellow Urine Appearance Clear Urine pH 8.0 Ur Specific [place] 1.015 Urine Protein Negative Urine Glucose (UA) Negative Urine Ketones Negative Urine Blood Negative Urine Nitrate Negative Urine Bilirubin Negative Urine Urobilinogen 0.2 Ur Leukocyte Esterase Negative Urine Opiates Screen Urine Methadone Screen Ur Barbiturates Screen Ur Phencyclidine Scrn Ur Amphetamines Screen U Benzodiazepines Scrn U Oth Cocaine Metabols U Cannabinoids Screen Influenza Typ A,B (EIA) 08/20/18 08/20/18 08/20/18 06:10 06:10 06:10 WBC 6.4 RBC 3.83 Hgb 10.4 L Hct 34.0 L MCV 88.8 MCH 27.2 MCHC 30.6 L RDW 14.2 Plt Count 242 MPV 10.6 Neut % (Auto) 64.7 Lymph % (Auto) 29.8 Lyon % (Auto) 5.0 Eos % (Auto) 0.5 L Baso % (Auto) 0.0 Lymph # (Auto) 1.9 Lyon # (Auto) 0.3 Eos # (Auto) 0.0 Baso # (Auto) 0.00 Absolute Neuts (auto) 4.14 PT INR APTT Sodium 141 Potassium 3.7 Chloride 103 Carbon Dioxide 31 Anion Gap 11 BUN 12 Creatinine 0.7 Est GFR ( Amer) > 60 Est GFR (Non-Af Amer) > 60 POC Glucose (mg/dL) Random Glucose 152 H Hemoglobin A1c Calcium 9.5 Phosphorus 3.6 Magnesium 2.0 Total Bilirubin 0.2 AST 24 ALT 13 Alkaline Phosphatase 113 Lactate Dehydrogenase Total Creatine Kinase Troponin I < 0.01 NT-Pro-B Natriuret Pep Total Protein 7.5 Albumin 4.1 Globulin 3.3 Albumin/Globulin Ratio 1.2 Triglycerides 153 Cholesterol 128 L LDL Cholesterol Direct 41 HDL Cholesterol 71 H Vitamin B12 545 Folate > 20.0 Free T4 Total T3 TSH 3rd Generation 5.98 H Urine Color Urine Appearance Urine pH Ur Specific [place] Urine Protein Urine Glucose (UA) Urine Ketones Urine Blood Urine Nitrate Urine Bilirubin Urine Urobilinogen Ur Leukocyte Esterase Urine Opiates Screen Urine Methadone Screen Ur Barbiturates Screen Ur Phencyclidine Scrn Ur Amphetamines Screen U Benzodiazepines Scrn U Oth Cocaine Metabols U Cannabinoids Screen Influenza Typ A,B (EIA) 08/20/18 08/20/18 08/20/18 08:22 08:50 11:24 WBC RBC Hgb Hct MCV MCH MCHC RDW Plt Count MPV Neut % (Auto) Lymph % (Auto) Lyon % (Auto) Eos % (Auto) Baso % (Auto) Lymph # (Auto) Lyon # (Auto) Eos # (Auto) Baso # (Auto) Absolute Neuts (auto) PT INR APTT Sodium Potassium Chloride Carbon Dioxide Anion Gap BUN Creatinine Est GFR ( Amer) Est GFR (Non-Af Amer) POC Glucose (mg/dL) 104 161 H Random Glucose Hemoglobin A1c Calcium Phosphorus Magnesium Total Bilirubin AST ALT Alkaline Phosphatase Lactate Dehydrogenase Total Creatine Kinase Troponin I NT-Pro-B Natriuret Pep Total Protein Albumin Globulin Albumin/Globulin Ratio Triglycerides Cholesterol LDL Cholesterol Direct HDL Cholesterol Vitamin B12 Folate Free T4 0.70 L Total T3 0.93 L TSH 3rd Generation Urine Color Urine Appearance Urine pH Ur Specific [place] Urine Protein Urine Glucose (UA) Urine Ketones Urine Blood Urine Nitrate Urine Bilirubin Urine Urobilinogen Ur Leukocyte Esterase Urine Opiates Screen Urine Methadone Screen Ur Barbiturates Screen Ur Phencyclidine Scrn Ur Amphetamines Screen U Benzodiazepines Scrn U Oth Cocaine Metabols U Cannabinoids Screen Influenza Typ A,B (EIA) Assessment & Plan (1) Foreign body of ear, left Status: Acute (2) Chest pain Status: Acute (3) Syncope Status: Acute (4) Allergic reaction Status: Acute (5) Anaphylaxis Status: Acute (6) Anaphylaxis due to food Status: Acute (7) Otalgia, left ear Status: Acute - Assessment and Plan (Free Text) Plan: foreign body removed form ear pt to not use qtips any longer. - Date & Time Date: 08/20/18 Time: 15:42
[2018-08-21] MEDS: Insulin Reg-MEDIUM-Coverage SC SCH ×3 (00:52→11:55)
[2018-08-21] MEDS: Pantoprazole 40 mg EC Tab PO SCH (05:01)
[2018-08-21] MEDS ORDERED: Levothyroxine 25 MCG TAB PO SCH (06:00)
[2018-08-21 07:41] LABS: BASO # 0.01 K/mm3 (0.0-2.0); BASO % 0.2 % (0.0-3.0); EOS % 0.5 % (1.5-5.0); LYMPH # 2.1 (1.2-3.4); LYMPH % 33.5 % (22.0-35.0); MEAN CELL VOLUME 87.1 fl (80.0-105.0); MEAN CORPUSCULAR HEMOGLOBIN 27.3 pg (25.0-35.0); MEAN CORPUSCULAR HGB CONC 31.3 g/dl (31.0-37.0); MEAN PLATELET VOLUME 10.1 fl (7.0-11.0); MONO # 0.3 (0.1-0.6); MONO % 4.9 % (1.0-6.0); RBC 4.03 10^6/uL (3.5-6.1); RED CELL DISTRIBUTION WIDTH 14.2 % (11.5-14.5); WHITE BLOOD COUNT 6.1 10^3/uL (4.5-11.0)
[2018-08-21 07:52] VITALS: RESP 20; TEMP 98.3; O2SAT 96
[2018-08-21 08:46] LABS: ALB/GLOB RATIO 1.3 (1.1-1.8); ALBUMIN 4.4 g/dL (3.0-4.8); ALT/SGPT 16 U/L (7-56); AST/SGOT 29 U/L (14-36); BLOOD UREA NITROGEN 15 mg/dL (7-21); CALCIUM 9.7 mg/dL (8.4-10.5); GFR NON-AFRICAN AMERICAN > 60
--- NOTE | 2018-08-21 08:59 | MRI ---
Date of service: 08/20/2018 PROCEDURE: MRI BRAIN WITHOUT CONTRAST HISTORY: dizziness COMPARISON: None available. TECHNIQUE: Multiplanar, multisequence MR images of the brain were obtained without intravenous contrast enhancement. FINDINGS: HEMORRHAGE: None DWI: No evidence of an acute or early subacute infarction. BRAIN PARENCHYMA: No mass effect or edema. No atrophy or chronic microvascular ischemic changes. VENTRICLES: Unremarkable. No hydrocephalus. CRANIUM: Unremarkable. ORBITS: Grossly unremarkable. PARANASAL SINUSES/MASTOIDS: Clear VASCULAR SYSTEM: Skull base flow voids intact. OTHER FINDINGS: None. IMPRESSION: Unremarkable non contrast enhanced MRI of the brain.
[2018-08-21] MEDS: Multivitamin With Minerals Tab PO SCH (10:26)
[2018-08-21] MEDS: Apap-Butalbital-Caffeine 325-50-40mg Tab PO SCH (10:26)
[2018-08-21] MEDS: Enoxaparin 40 mg Syringe SC SCH (10:27)
[2018-08-21 10:28] VITALS: BP 152/77; PULSE 96
--- NOTE | 2018-08-21 10:28 | CP.PCM.DIS ---
<Ash Rosales - Last Filed: 08/21/18 12:55> Provider - Provider Date of Admission: 08/19/18 20:49 Attending physician: Zi Chase MD Consults: 08/19/18 20:50 Physician Consult Routine Comment: Consulting Provider: Ashihs Patel Consulting Physician: Ashish Patel Reason for Consult: foreign body right ear 08/19/18 21:53 Physician Consult Routine Comment: Consulting Provider: Bon Mueller Consulting Physician: Bon Mueller Reason for Consult: ACS rule-out (chest pain) / pre-syncope Time Spent in preparation of Discharge (in minutes): 45 Diagnosis - Discharge Diagnosis (1) Dizziness Status: Resolved (2) Chest pain Status: Resolved (3) Foreign body of ear, right Status: Resolved (4) Dyslipidemia Status: Chronic (5) Diabetes mellitus Status: Chronic (6) HTN (hypertension) Status: Chronic Hospital Course - Lab Results Lab Results: Most Recent Lab Values WBC 6.1 10^3/uL (4.5-11.0) 08/21/18 07:00 RBC 4.03 10^6/uL (3.5-6.1) 08/21/18 07:00 Hgb 11.0 g/dL (12.0-16.0) L 08/21/18 07:00 Hct 35.1 % (36.0-48.0) L 08/21/18 07:00 MCV 87.1 fl (80.0-105.0) 08/21/18 07:00 MCH 27.3 pg (25.0-35.0) 08/21/18 07:00 MCHC 31.3 g/dl (31.0-37.0) 08/21/18 07:00 RDW 14.2 % (11.5-14.5) 08/21/18 07:00 Plt Count 246 10^3/uL (120.0-450.0) 08/21/18 07:00 MPV 10.1 fl (7.0-11.0) 08/21/18 07:00 Neut % (Auto) 60.9 % (50.0-68.0) 08/21/18 07:00 Lymph % (Auto) 33.5 % (22.0-35.0) 08/21/18 07:00 [place] % (Auto) 4.9 % (1.0-6.0) 08/21/18 07:00 Eos % (Auto) 0.5 % (1.5-5.0) L 08/21/18 07:00 Baso % (Auto) 0.2 % (0.0-3.0) 08/21/18 07:00 Lymph # (Auto) 2.1 (1.2-3.4) 08/21/18 07:00 [place] # (Auto) 0.3 (0.1-0.6) 08/21/18 07:00 Eos # (Auto) 0.0 (0.0-0.7) 08/21/18 07:00 Baso # (Auto) 0.01 K/mm3 (0.0-2.0) 08/21/18 07:00 Absolute Neuts (auto) 3.73 (1.4-6.5) 08/21/18 07:00 PT 11.1 SECONDS (9.4-12.5) 08/19/18 18:41 INR 1.00 08/19/18 18:41 APTT 32.9 Seconds (26.9-38.3) 08/19/18 18:41 Sodium 141 mmol/L (132-148) 08/21/18 07:00 Potassium 3.8 mmol/L (3.6-5.0) 08/21/18 07:00 Chloride 104 mmol/L (98-107) 08/21/18 07:00 Carbon Dioxide 26 mmol/L (21-33) 08/21/18 07:00 Anion Gap 15 (10-20) 08/21/18 07:00 BUN 15 mg/dL (7-21) 08/21/18 07:00 Creatinine 0.7 mg/dl (0.7-1.2) 08/21/18 07:00 Est GFR ( Amer) > 60 08/21/18 07:00 Est GFR (Non-Af Amer) > 60 08/21/18 07:00 POC Glucose (mg/dL) 120 mg/dL (65-110) H 08/21/18 06:28 Random Glucose 128 mg/dL (70-110) H 08/21/18 07:00 Hemoglobin A1c 6.9 % (4.2-6.5) H 08/20/18 06:10 Calcium 9.7 mg/dL (8.4-10.5) 08/21/18 07:00 Phosphorus 3.6 mg/dL (2.5-4.5) 08/20/18 06:10 Magnesium 2.0 mg/dL (1.7-2.2) 08/20/18 06:10 Total Bilirubin 0.4 mg/dL (0.2-1.3) 08/21/18 07:00 AST 29 U/L (14-36) 08/21/18 07:00 ALT 16 U/L (7-56) 08/21/18 07:00 Alkaline Phosphatase 124 U/L (38-126) 08/21/18 07:00 Lactate Dehydrogenase 444 U/L (333-699) 08/19/18 18:41 Total Creatine Kinase 86 U/L (35-230) 08/19/18 18:41 Troponin I < 0.01 ng/mL 08/20/18 06:10 NT-Pro-B Natriuret Pep 206 pg/mL (0-450) 08/19/18 18:41 Total Protein 7.9 g/dL (5.8-8.3) 08/21/18 07:00 Albumin 4.4 g/dL (3.0-4.8) 08/21/18 07:00 Globulin 3.5 gm/dL 08/21/18 07:00 Albumin/Globulin Ratio 1.3 (1.1-1.8) 08/21/18 07:00 Triglycerides 153 mg/dL (35-160) 08/20/18 06:10 Cholesterol 128 mg/dL (130-200) L 08/20/18 06:10 LDL Cholesterol Direct 41 mg/dL (0-129) 08/20/18 06:10 HDL Cholesterol 71 mg/dL (29-60) H 08/20/18 06:10 Vitamin B12 545 pg/mL (239-931) 08/20/18 06:10 Folate > 20.0 ng/mL 08/20/18 06:10 Free T4 0.70 ng/dL (0.78-2.19) L 08/20/18 08:50 Total T3 0.93 ng/mL (0.97-1.69) L 08/20/18 08:50 TSH 3rd Generation 5.98 mIU/mL (0.46-4.68) H 08/20/18 06:10 Urine Color Yellow (YELLOW) 08/19/18 22:55 Urine Appearance Clear (CLEAR) 08/19/18 22:55 Urine pH 8.0 (4.7-8.0) 08/19/18 22:55 Ur Specific [place] 1.015 (1.005-1.035) 08/19/18 22:55 Urine Protein Negative mg/dL (<30 mg/dL) 08/19/18 22:55 Urine Glucose (UA) Negative mg/dL (NEGATIVE) 08/19/18 22:55 Urine Ketones Negative mg/dL (NEGATIVE) 08/19/18 22:55 Urine Blood Negative (NEGATIVE) 08/19/18 22:55 Urine Nitrate Negative (NEGATIVE) 08/19/18 22:55 Urine Bilirubin Negative (NEGATIVE) 08/19/18 22:55 Urine Urobilinogen 0.2 E.U./dL (<1 E.U./dL) 08/19/18 22:55 Ur Leukocyte Esterase Negative Cindy/uL (NEGATIVE) 08/19/18 22:55 Urine Opiates Screen Negative (NEGATIVE) 08/19/18 20:45 Urine Methadone Screen Negative (NEGATIVE) 08/19/18 20:45 Ur Barbiturates Screen Positive (NEGATIVE) H 08/19/18 20:45 Ur Phencyclidine Scrn Negative (NEGATIVE) 08/19/18 20:45 Ur Amphetamines Screen Negative (NEGATIVE) 08/19/18 20:45 U Benzodiazepines Scrn Negative (NEGATIVE) 08/19/18 20:45 U Oth Cocaine Metabols Negative (NEGATIVE) 08/19/18 20:45 U Cannabinoids Screen Negative (NEGATIVE) 08/19/18 20:45 Influenza Typ A,B (EIA) Negative for flu a/b (NEGATIVE) 08/19/18 18:41 - Hospital Course Hospital Course: Patient is a 63-year-old F with PMH significant for COPD, HTN, TIA, diabetes, anemia, GERD, HLD, bipolar disorder, and schizophrenia presents who presents to the ED with a cc of dizziness and fatigue for several months. Patient endorses tingling "all over her body", and chest pain. During the course of her hospital stay, troponins were negative, EKG showed NSR no ST changes. Cardiology was consulted (Dr. Mueller) and cleared patient for discharge, to follow up for outpatient stress test. ENT, Dr. Patel was consulted and the foreign body in patient's right ear was removed. Instructed patient not to put anything into her ears. Patient states that her dizziness resolved afterwards. Patient was also complaining of upper extremity paresthesias which likely 2/2 to diabetic neuropathy. Brain MRI was negative. Patient instructed to continue home Ángel pentin. Physical therapy evaluated patient and cleared patient for discharge. Patient was found to have hypothyroidism and instructed to start levothyroxine upon discharge. Patient instructed to follow up with health safety and environment manager and her primary care doctor and to recheck thyroid levels in 6 weeks. Patient is medically stable for discharge. Discharge Exam - Additional Findings Additional findings: - Constitutional Appears: Non-toxic, No Acute Distress - Head Exam Head Exam: ATRAUMATIC, NORMAL INSPECTION, NORMOCEPHALIC - Eye Exam Eye Exam: EOMI, Normal appearance, PERRL Pupil Exam: NORMAL ACCOMODATION - ENT Exam ENT Exam: Mucous Membranes Moist, Normal Exam - Neck Exam Neck exam: Positive for: Normal Inspection - Respiratory Exam Respiratory Exam: Clear to Auscultation Bilateral, NORMAL BREATHING PATTERN. absent: Accessory Muscle Use, Chest Wall Tenderness, Decreased Breath Sounds, Prolonged Expiratory Phase, Rhonchi, Wheezes, Respiratory Distress, Stridor - Cardiovascular Exam Cardiovascular Exam: REGULAR RHYTHM, +S1 - GI/Abdominal Exam GI & Abdominal Exam: Normal Bowel Sounds, Soft. absent: Tenderness - Extremities Exam Extremities exam: Positive for: normal inspection, pedal pulses present. Negative for: calf tenderness, pedal edema - Back Exam Back exam: NORMAL INSPECTION. absent: CVA tenderness (L), CVA tenderness (R) - Neurological Exam Neurological exam: Alert, CN II-XII Intact, Oriented x3 - Muscle strength 5/5 and sensations intact in all extremities - Psychiatric Exam Psychiatric exam: Normal Affect, Normal Mood - Skin Skin Exam: Dry, Intact, Normal Color, Warm Discharge Plan - Discharge Medications Prescriptions: Gabapentin [Neurontin] 300 mg PO DAILY #14 cap Levothyroxine [Synthroid] 25 mcg PO ACB #14 tab Omeprazole 20 mg PO QD5 #14 capsule.dr - Follow Up Plan Condition: FAIR Disposition: HOME/ ROUTINE Instructions: Type 2 Diabetes, Angina (DC), Quitting Smoking, Dizziness, Nonvertigo, (DC), Diabetes and Diet Additional Instructions: - Start taking Levothyroxine 25mg once daily before breakfast. - Resume all other home medications as prescribed by your doctor. - Follow up with your primary care doctor in 3-5 days. Recheck your thyroid levels in 6 weeks. - Return to the emergency for worsening or newly concerning symptoms. Referrals: Slava Jacobson MD [Family Provider] - <Zi Chase - Last Filed: 08/22/18 11:56> Provider - Provider Date of Admission: 08/19/18 20:49 Attending physician: Zi Chase MD Consults: 08/19/18 20:50 Physician Consult Routine Comment: Consulting Provider: Ashish Patel Consulting Physician: Ashish Patel Reason for Consult: foreign body right ear 08/19/18 21:53 Physician Consult Routine Comment: Consulting Provider: Bon Mueller Consulting Physician: Bon Mueller Reason for Consult: ACS rule-out (chest pain) / pre-syncope Hospital Course - Lab Results Lab Results: Most Recent Lab Values WBC 6.1 10^3/uL (4.5-11.0) 08/21/18 07:00 RBC 4.03 10^6/uL (3.5-6.1) 08/21/18 07:00 Hgb 11.0 g/dL (12.0-16.0) L 08/21/18 07:00 Hct 35.1 % (36.0-48.0) L 08/21/18 07:00 MCV 87.1 fl (80.0-105.0) 08/21/18 07:00 MCH 27.3 pg (25.0-35.0) 08/21/18 07:00 MCHC 31.3 g/dl (31.0-37.0) 08/21/18 07:00 RDW 14.2 % (11.5-14.5) 08/21/18 07:00 Plt Count 246 10^3/uL (120.0-450.0) 08/21/18 07:00 MPV 10.1 fl (7.0-11.0) 08/21/18 07:00 Neut % (Auto) 60.9 % (50.0-68.0) 08/21/18 07:00 Lymph % (Auto) 33.5 % (22.0-35.0) 08/21/18 07:00 [place] % (Auto) 4.9 % (1.0-6.0) 08/21/18 07:00 Eos % (Auto) 0.5 % (1.5-5.0) L 08/21/18 07:00 Baso % (Auto) 0.2 % (0.0-3.0) 08/21/18 07:00 Lymph # (Auto) 2.1 (1.2-3.4) 08/21/18 07:00 [place] # (Auto) 0.3 (0.1-0.6) 08/21/18 07:00 Eos # (Auto) 0.0 (0.0-0.7) 08/21/18 07:00 Baso # (Auto) 0.01 K/mm3 (0.0-2.0) 08/21/18 07:00 Absolute Neuts (auto) 3.73 (1.4-6.5) 08/21/18 07:00 PT 11.1 SECONDS (9.4-12.5) 08/19/18 18:41 INR 1.00 08/19/18 18:41 APTT 32.9 Seconds (26.9-38.3) 08/19/18 18:41 Sodium 141 mmol/L (132-148) 08/21/18 07:00 Potassium 3.8 mmol/L (3.6-5.0) 08/21/18 07:00 Chloride 104 mmol/L (98-107) 08/21/18 07:00 Carbon Dioxide 26 mmol/L (21-33) 08/21/18 07:00 Anion Gap 15 (10-20) 08/21/18 07:00 BUN 15 mg/dL (7-21) 08/21/18 07:00 Creatinine 0.7 mg/dl (0.7-1.2) 08/21/18 07:00 Est GFR ( Amer) > 60 08/21/18 07:00 Est GFR (Non-Af Amer) > 60 08/21/18 07:00 POC Glucose (mg/dL) 155 mg/dL (65-110) H 08/21/18 11:14 Random Glucose 128 mg/dL (70-110) H 08/21/18 07:00 Hemoglobin A1c 6.9 % (4.2-6.5) H 08/20/18 06:10 Calcium 9.7 mg/dL (8.4-10.5) 08/21/18 07:00 Phosphorus 3.6 mg/dL (2.5-4.5) 08/20/18 06:10 Magnesium 2.0 mg/dL (1.7-2.2) 08/20/18 06:10 Total Bilirubin 0.4 mg/dL (0.2-1.3) 08/21/18 07:00 AST 29 U/L (14-36) 08/21/18 07:00 ALT 16 U/L (7-56) 08/21/18 07:00 Alkaline Phosphatase 124 U/L (38-126) 08/21/18 07:00 Lactate Dehydrogenase 444 U/L (333-699) 08/19/18 18:41 Total Creatine Kinase 86 U/L (35-230) 08/19/18 18:41 Troponin I < 0.01 ng/mL 08/20/18 06:10 NT-Pro-B Natriuret Pep 206 pg/mL (0-450) 08/19/18 18:41 Total Protein 7.9 g/dL (5.8-8.3) 08/21/18 07:00 Albumin 4.4 g/dL (3.0-4.8) 08/21/18 07:00 Globulin 3.5 gm/dL 08/21/18 07:00 Albumin/Globulin Ratio 1.3 (1.1-1.8) 08/21/18 07:00 Triglycerides 153 mg/dL (35-160) 08/20/18 06:10 Cholesterol 128 mg/dL (130-200) L 08/20/18 06:10 LDL Cholesterol Direct 41 mg/dL (0-129) 08/20/18 06:10 HDL Cholesterol 71 mg/dL (29-60) H 08/20/18 06:10 Vitamin B12 545 pg/mL (239-931) 08/20/18 06:10 Folate > 20.0 ng/mL 08/20/18 06:10 Free T4 0.70 ng/dL (0.78-2.19) L 08/20/18 08:50 Total T3 0.93 ng/mL (0.97-1.69) L 08/20/18 08:50 TSH 3rd Generation 5.98 mIU/mL (0.46-4.68) H 08/20/18 06:10 Urine Color Yellow (YELLOW) 08/19/18 22:55 Urine Appearance Clear (CLEAR) 08/19/18 22:55 Urine pH 8.0 (4.7-8.0) 08/19/18 22:55 Ur Specific [place] 1.015 (1.005-1.035) 08/19/18 22:55 Urine Protein Negative mg/dL (<30 mg/dL) 08/19/18 22:55 Urine Glucose (UA) Negative mg/dL (NEGATIVE) 08/19/18 22:55 Urine Ketones Negative mg/dL (NEGATIVE) 08/19/18 22:55 Urine Blood Negative (NEGATIVE) 08/19/18 22:55 Urine Nitrate Negative (NEGATIVE) 08/19/18 22:55 Urine Bilirubin Negative (NEGATIVE) 08/19/18 22:55 Urine Urobilinogen 0.2 E.U./dL (<1 E.U./dL) 08/19/18 22:55 Ur Leukocyte Esterase Negative Cindy/uL (NEGATIVE) 08/19/18 22:55 Urine Opiates Screen Negative (NEGATIVE) 08/19/18 20:45 Urine Methadone Screen Negative (NEGATIVE) 08/19/18 20:45 Ur Barbiturates Screen Positive (NEGATIVE) H 08/19/18 20:45 Ur Phencyclidine Scrn Negative (NEGATIVE) 08/19/18 20:45 Ur Amphetamines Screen Negative (NEGATIVE) 08/19/18 20:45 U Benzodiazepines Scrn Negative (NEGATIVE) 08/19/18 20:45 U Oth Cocaine Metabols Negative (NEGATIVE) 08/19/18 20:45 U Cannabinoids Screen Negative (NEGATIVE) 08/19/18 20:45 Influenza Typ A,B (EIA) Negative for flu a/b (NEGATIVE) 08/19/18 18:41 Attending/Attestation - Attestation I have personally seen and examined this patient.: Yes I have fully participated in the care of the patient.: Yes I have reviewed all pertinent clinical information, including history, physical exam and plan: Yes Notes (Text): 08/22/18 11:53 Medical record note made by the resident after discussion with my direction and input after the patient was personally seen and examined by me. I have reviewed the chart and agree that the record accurately reflects by personal performance of the history, physical exam, data review, and medical decision-making, in the course for the patient. I have also personally directed the plan of care. 63 years nold female with PMH significant for COPD, HTN, TIA, diabetes, anemia, GERD, HLD, bipolar disorder, and schizophrenia presents who presents to the ED with a cc of dizziness and fatigue for several months. Patient was found to have foreign body in right ear. ENT, Dr. Patel was consulted and the foreign body in patient's right ear was removed. Instructed patient not to put anything into her ears. Patient states that her dizziness resolved afterwards. Patient endorses tingling "all over her body", and chest pain. During the course of her hospital stay, troponins were negative, EKG showed NSR no ST changes. Cardiology was consulted (Dr. Mueller) and cleared patient for discharge, to follow up for outpatient stress test. Patient was also complaining of upper extremity paresthesias which likely 2/2 to diabetic neuropathy. Brain MRI was negative. Patient instructed to continue home Gabapentin. Patient is ambulatory at the time of discharged.She will follow up with PCP/Cardiology. Management plan was discussed in detail with patient. Education was provided.
== END 2018-08-21 13:18 | disposition home or self-care (01) ==
LOC: ED 17:30 → ERH 20:49 → 2RNO 08-20 00:50 → 5RNO 08-20 14:11
PROVIDERS: ADMIT Internal Medicine; ATTEND Internal Medicine
DX: R07.89 Other chest pain (principal); R00.2 Palpitations; R55 Syncope and collapse; T16.1XXA Foreign body in right ear, initial encounter; H92.02 Otalgia, left ear; R42 Dizziness and giddiness; I10 Essential (primary) hypertension; F25.0 Schizoaffective disorder, bipolar type; D64.9 Anemia, unspecified; E03.9 Hypothyroidism, unspecified; E11.40 Type 2 diabetes mellitus with diabetic neuropathy, unspecified; I25.10 Atherosclerotic heart disease of native coronary artery without angina pectoris; E78.5 Hyperlipidemia, unspecified; F41.9 Anxiety disorder, unspecified; J44.9 Chronic obstructive pulmonary disease, unspecified; K21.9 Gastro-esophageal reflux disease without esophagitis; E78.00 Pure hypercholesterolemia, unspecified; M06.9 Rheumatoid arthritis, unspecified; F17.210 Nicotine dependence, cigarettes, uncomplicated; Z79.82 Long term (current) use of aspirin; Z91.018 Allergy to other foods; Z86.73 Personal history of transient ischemic attack (TIA), and cerebral infarction without residual deficits; Z79.84 Long term (current) use of oral hypoglycemic drugs
CPT/HCPCS: 36415; 69200; 70450; 70551; 71045; 80053; 80061; 80324; 80345; 80346; 80349; 80353; 80358; 80361; 81003; 82550; 82607; 82746; 82948; 83036; 83615; 83735; 83880; 83992; 84100; 84439; 84443; 84480; 84484; 85025; 85610; 85730; 87804; 93005; 96372; 97161; 99285; G0378; G8978; G8979; J1650